=== PATIENT | female | born 1990 | race Hispanic/Latino ===

== ENCOUNTER 2016-06-09 10:00 | Outpatient (CLI) | payer MEDICAID ==
[2016-06-09 10:45] LABS: Hematocrit 39.3 % (30.3-42.9); Hemoglobin 13.1 gm/dl (10.1-14.3); Mean Corpuscular HGB Conc 33 % (30-34); Mean Corpuscular Hemoglobin 27 pg (28-32); Mean Corpuscular Volume 80 fl (79-97); Platelet Count 226 K/mm3 (140-440); Red Blood Count 4.92 M/mm3 (3.65-5.03); Red Cell Distribution Width 14.6 % (13.2-15.2); White Blood Count 7.5 K/mm3 (4.5-11.0)
[2016-06-09 11:13] LABS: Alanine Aminotransferase 16 units/L (7-56); Albumin/Globulin Ratio 1.4 %; Alkaline Phosphatase 114 units/L (35-129); Anion Gap 18 mmol/L; Bilirubin,Total 0.3 mg/dL (0.1-1.2); Blood Urea Nitrogen 9 mg/dL (7-17); Calcium 8.7 mg/dL (8.4-10.2); Carbon Dioxide 24 mmol/L (22-30); Chloride 104.4 mmol/L (98-107); Glucose 129 mg/dL (65-100); Sodium 142 mmol/L (137-145); Total Protein 6.9 g/dL (6.3-8.2)
--- NOTE | 2016-06-09 13:44 | Ultrasound Report ---
RIGHT UPPER QUADRANT ULTRASOUND: HISTORY: Right upper quadrant abdominal pain, cholelithiasis. Technique: Transabdominal ultrasound imaging with Doppler interrogation. FINDINGS: The liver is echogenic consistent with diffuse fatty infiltration. No focal liver mass. A large shadowing gallstone measuring up to 2.0 cm is identified within the gallbladder. There is no evidence for abnormal distention or surrounding fluid. The CBD measures 3 mm. Images of the liver parenchyma, pancreas, right kidney and aorta are within normal limits. No perihepatic ascites. IMPRESSION: Fatty infiltration of the liver. Large solitary gallstone. No findings suggest acute cholecystitis.
== END 2016-06-09 10:01 | disposition home or self-care (01) ==
LOC: US 10:00
PROVIDERS: ATTEND Surgery
DX: K80.20 Calculus of gallbladder without cholecystitis without obstruction (principal); K76.0 Fatty (change of) liver, not elsewhere classified
CPT/HCPCS: 36415; 76705; 80053; 81025; 85027

== ENCOUNTER 2016-06-16 11:22 | Day surgery (SDC) | payer MEDICAID ==
--- NOTE | 2016-06-15 15:36 | Admit Criteria Form ---
Admission Criteria Documentation: AMBULATORY SURGERY EXCEPTION CRITERIA Ambulatory Surgery Exception Criteria ( Place 'X' for any and all applicable criteria): Surgery or procedure performed on ambulatory basis may require inpatient stay for[A] ANY ONE of the following(1)(2)(3)(4)(5)(6)(7)(8)(9): [X] I. A preoperative situation, condition, or finding that warrants inpatient stay as indicated by ANY ONE of the following: [] a) Inpatient care needed because of severity of a disease or condition rather than the surgery (eg, severe cardiac or respiratory disease, severe infection) (15) (16 ) (17) (18) [] b) Emergent procedure (eg, angioplasty for acute ischemia)(19) [] c) Complex surgical approach or situation as indicated by ANY ONE of the following(3): [] i) Open approach needed instead of usual endoscopic, transcatheter, or other less invasive procedure [] ii) Difficult approach because of previous operation [] iii) Airway monitoring required after open neck procedures(20)(21) [] iv) Large mass requiring unusually extensive dissection [] v) Additional complicating feature requiring inpatient care (eg, drain management)(22(23): [X] d) Major surgery in a pt with high anesthetic risk as indicated by ANY ONE of the following (2)(3)(5)(7)(8): [] i) ASA risk class III or higher (severe systemic disease impairing function) [D] [] ii) Advanced age (eg, older than 85 years)(14)(24) [] iii) Symptomatic heart failure(25) [] iv) Symptomatic asthma or COPD(8)(21) [X] v) Morbid obesity with hemodynamic or respiratory problems(20)( 21)(26)(27) [] vi) Obstructive sleep apnea(20)(21) [] vii) Former premature infants who are younger than 60 weeks [] viii) High risk for severe postoperative abnormalities (eg, severe postoperative hypocalcemia after parathyroidectomy for severe hyperparathyroidism)(27)( 28) [] ix) Unstable angina(25) [] e) Drug-related risk requiring inpatient stay as indicated by ANY ONE of the following(5)(10)(14)(32)(33) [] i) Procedure requires discontinuing drugs or other therapy (eg , antiarrhythmic medication, antiseizure medication), which necessitates inpatient observation or treatment.(18)(31) [] ii) Major surgery and high risk drug use as indicated by ANY ONE of the following: [] 1) Active abuse of cocaine or similar drug [] 2) Monoamine oxidase inhibitor use [] 3) Other drug identified as posing risk [] f) Inadequate outpatient care situation as indicated by ANY ONE of the following(5)(10)(14)(32)(33) [] i) Patient lives remote from medical facility and procedure has urgent complication potential, and temporary nearby residence cannot be arranged [] ii) Patient will have postprocedure incapacitation and inadequate assistance at home, or alternative level of care cannot be arranged. [] iii) Patient will have long general anesthesia or procedure side effect resolution time, and competent person to stay with patient on first postoperative night at home or alternative level of care cannot be arranged. []iv) Other inadequate outpatient situation that cannot be handled by other means [] II. A perioperative event, condition, or finding that warrants inpatient stay as indicated by ANY ONE of the following (1)(2)(3): [] a) Inadequate physiologic recovery: cardiovascular, respiratory, or hemodynamic status not normal or near preoperative baseline(18) [] b) Hemodynamic instability [] c) Patient not alert with near normal or baseline mental status [] d) Temperature not normal or as expected and not appropriate for outpatient treatment of condition [] e) Ambulatory or appropriate activity level status not yet achieved post procedure [E](34)(35)(36) [] f) Operative site not appropriate (eg, unexpected or excessive drainage or bleeding) [] g) Postoperative effects not resolved or adequately managed (eg, significant pain or vomiting not appropriate for outpatient or next level of care)(10)(12) [] h) Complicating features requiring inpatient care as indicated by ANY ONE of the following(37): [] i) Severe complications of procedure (eg, bowel injury, airway compromise, vascular injury,severe hemorrhage) [] ii) Extensive (eg, dissection far beyond usual scope of procedure ) or prolonged (eg, 120 minutes beyond usual) surgery needed requiring inpatient postoperative care [] iii) Conversion to an open or complex procedure that requires inpatient care (eg, open vs laparoscopic cholecystectomy, abdominal vs vaginal hysterectomy)(38) [] iv) Comorbid condition or test result identified during or post procedure that requires inpatient care (7) [] v) Malignant hyperthermia(30) [] vi) Other complicating feature requiring inpatient care(22)(23) Inpatient stay may be needed until ALL of the following are present (1)(2)(3)(4) (5)(6)(10)(14)(33)(40): []a) Physiologic recovery: cardiovascular, respiratory, and hemodynamic status normal or near preoperative baseline []b) Hemodynamic stability []c) Patient alert, with near normal or baseline mental status []d) Temperature appropriate: patient afebrile or temperature appropriate for outpt treatment of condition []e) Activity level appropriate: ambulatory or appropriate activity level post procedure []f) Operative site appropriate as indicated by ALL of the following: []i) Site dry or with expected drainage []ii) Any blood noted is as expected for procedure. []g) Postoperative effects resolved or managed as indicated by ALL of the following: []i) Pain management appropriate for outpatient (or next level of) care(10) []ii) Minimal nausea and vomiting: if present, successfully treated with oral medication(12) []iii) Headache, dizziness, or drowsiness (if present) are mild. []h) Voiding status acceptable as indicated by ANY ONE of the following: []i) Voiding spontaneously []ii) No voiding but instructions given for follow-up in 6 to 8 hours []iii) Urinary catheter in place, and instructions given for follow-up []i) Complicating features requiring inpatient care manageable at a lower level of care(37) []j) Comorbid conditions manageable at a lower level of care(37) The original [employer] content created by [employer] has been revised. The portions of the content which have been revised are identified through the use of italic text or in bold, and [facility] [email or web address] has neither reviewed nor approved the modified material. All other unmodified content is copyright [employer]. Please see references footnoted in the original [employer] edition 2016 Admission Criteria Met: Yes
[2016-06-16] MEDS ORDERED: HEPARIN SUB-Q NR (12:15)
--- NOTE | 2016-06-16 12:44 | Anesthesia Day of Surgery ---
Anesthesia Day of Surgery - Day of Surgery Patient Examined: Yes Patient H&P Reviewed: Yes Patient is NPO: Yes
--- NOTE | 2016-06-16 12:44 | Anesthesia Consultation ---
Anesthesia Consult and Med Hx Date of service: 06/16/16 - Airway Anesthetic Teeth Evaluation: Good ROM Head & Neck: Adequate Mental/Hyoid Distance: Adequate Mallampati Class: Class II Intubation Access Assessment: Probably Good - Pulmonary Exam CTA: Yes - Cardiac Exam Cardiac Exam: RRR - Pre-Operative Health Status ASA Pre-Surgery Classification: ASA2 Proposed Anesthetic Plan: General - Pulmonary Hx Asthma: Yes (last used inhaler 2 days ago) COPD: No Hx Pneumonia: No - Cardiovascular System Hx Hypertension: No - Central Nervous System Hx Seizures: No Hx Psychiatric Problems: No - Endocrine Hx Renal Disease: No Hx End Stage Renal Disease: No Hx Hypothyroidism: No Hx Hyperthyroidism: No - Hematic Hx Anemia: No Hx Sickle Cell Disease: No - Other Systems Hx Alcohol Use: No Hx Cancer: No Hx Obesity: Yes (Morbid obesity)
[2016-06-16] MEDS ORDERED: VERSED IV NR (13:00)
[2016-06-16] MEDS ORDERED: NACL 0.9% 1000 ML 1,000 ML IV SCH (13:00)
[2016-06-16] MEDS ORDERED: VANCOMYCIN/NS 1 GM/250 ML 1 GM/250 ML BAG IV NR (13:00)
[2016-06-16] MEDS ORDERED: PEPCID IV NR (13:00)
[2016-06-16] MEDS ORDERED: XYLOCAINE MPF 2% ONE (13:13)
[2016-06-16] MEDS ORDERED: ZEMURON IV ONE (13:13)
[2016-06-16] MEDS ORDERED: DIPRIVAN 10 MG/ML IV ONE (13:13)
[2016-06-16] MEDS ORDERED: SUBLIMAZE ONE (13:13)
[2016-06-16] MEDS ORDERED: NORCO 5/325 PO PRN ×2 (13:18→15:46)
[2016-06-16] MEDS ORDERED: ZOFRAN IV PRN (13:18)
[2016-06-16] MEDS ORDERED: BREVIBLOC IV ONE (13:47)
[2016-06-16] MEDS ORDERED: BENADRYL ONE (13:48)
[2016-06-16] MEDS ORDERED: DILAUDID ONE (13:48)
[2016-06-16] MEDS ORDERED: DECADRON ONE (13:50)
[2016-06-16] MEDS ORDERED: ZOFRAN ONE (13:50)
[2016-06-16] MEDS ORDERED: MARCAINE 0.5% INFILTRATI ONE (14:00)
[2016-06-16] MEDS ORDERED: NACL 0.9% IR ONE (14:00)
[2016-06-16] MEDS ORDERED: ROBINUL ONE ×2 (14:09)
[2016-06-16] MEDS ORDERED: BLOXIVERZ ONE (14:09)
[2016-06-16] MEDS: DILAUDID IV PRN ×3 (14:49→15:09)
--- NOTE | 2016-06-16 14:54 | Operative Report ---
PREOPERATIVE DIAGNOSIS: Gallbladder disease with stones. POSTOPERATIVE DIAGNOSIS: Gallbladder disease with stones. SURGERY: Laparoscopic cholecystectomy. ANESTHESIA: General. BLOOD LOSS: Minimal. SENIOR RECEPTIONIST: Shola Apodaca MD FINDINGS: The patient had a very long and thin cystic duct that to me barely about 1 mm. The cystic artery is small as well. The gallbladder contained one stone that to me about 1 x 1 x 1 cm. Rest of the examination did not reveal anything specific. DESCRIPTION OF PROCEDURE: With the patient in supine position, prepped and draped in usual fashion. I made a small incision in the right upper abdomen under local anesthesia. With the Veress needle, I was able to introduce CO2 pressure of 15 for which #5 trocar was inserted. With the use of #5 camera, I was able to introduce 3 more trocars, 5 in the infraumbilical area, another 5 in the mid right upper abdomen and 10 in the mid upper epigastrium. All this was done under local anesthesia. We got hold of the gallbladder from its fundus and infundibular area at which point we were able to isolate and see both cystic duct and cystic artery. These were endoclipped x 4 each. Then, the gallbladder was removed in toto using electrocautery. This was excised through the epigastric trocar with the use of the EndoCatch. We were well satisfied, we had good hemostasis. There was excellent hemostasis. So, the wound was closed after removing all the trocars, deflating the abdominal cavity and the fascia was then closed with use of 0 Vicryl [id number] x 2 and the skin with 4-0 Vicryl and bandage. The patient was then transferred to the recovery room in good condition. JOB# [id number] MARCIE/DAVID
--- NOTE | 2016-06-16 15:51 | Post Anesthesia Evaluation ---
- Post Anesthesia Evaluation Patient Participated: Yes Airway Patent: Yes Stable Respiratory Function: Yes Temp > 96.8F: Yes Pain Manageable: Yes Adequeate Hydration: Yes Anesthesia Complications: No Block Receding Appropriately: Not Applicable
[2016-06-16 17:01] VITALS: BP 130/73
--- NOTE | 2016-06-16 23:22 | Discharge Summary ---
FINAL DIAGNOSIS: Gallbladder disease with stones. Very long cystic duct and it is barely about 1 mm. The patient had symptoms and signs of the gallbladder disease. She was seen in my office about 2 months ago then she came back last week for the above. She presents for a cholecystectomy. PHYSICAL EXAMINATION: GENERAL: Showed an obese white female. She is in no distress. HEAD AND NECK: Negative. CHEST: Clear. HEART: Sounds normal . ABDOMEN: Protuberant, soft, benign. Minimal tenderness in the right upper quadrant. HOSPITAL COURSE: The patient was thus admitted, where she underwent laparoscopic cholecystectomy. Postop, she was transferred to the recovery room. She is going to go home today, going to give a prescription for Vicodin to be taken 1 every 4 hours p.r.n. for pain, to see me in my office in about 10 days. JOB# [id number] MARCIE/DAVID
== END 2016-06-16 16:55 | disposition swing bed (61) ==
LOC: OR 11:22
PROVIDERS: ATTEND Surgery
DX: K80.10 Calculus of gallbladder with chronic cholecystitis without obstruction (principal); J45.909 Unspecified asthma, uncomplicated; E66.01 Morbid (severe) obesity due to excess calories; Z68.43 Body mass index [BMI] 50.0-59.9, adult
CPT/HCPCS: 47562; 81025; 88304; J1100; J1170; J1200; J1644; J2250; J2405; J2704; J2710; J3010; J3370; J7030

== ENCOUNTER 2016-07-18 21:53 | Emergency (ER) | payer MEDICAID ==
[2016-07-18 22:49] VITALS: BP 134/84
[2016-07-18 23:01] LABS: Basophils % (Auto) 0.4 % (0.0-1.8); Eosinophils % (Auto) 2.2 % (0.0-4.3); Hemoglobin 12.6 gm/dl (10.1-14.3); Mean Corpuscular HGB Conc 33 % (30-34); Mean Corpuscular Hemoglobin 27 pg (28-32); Mean Corpuscular Volume 81 fl (79-97); Platelet Count 199 K/mm3 (140-440); Red Cell Distribution Width 15.3 % (13.2-15.2); White Blood Count 7.5 K/mm3 (4.5-11.0)
[2016-07-18 23:23] LABS: Alanine Aminotransferase 18 units/L (7-56); Albumin 4.1 g/dL (3.9-5); Albumin/Globulin Ratio 1.4 %; Alkaline Phosphatase 140 units/L (35-129); Anion Gap 18 mmol/L; BUN/Creatinine Ratio 18.57; Bilirubin,Total 0.2 mg/dL (0.1-1.2); Blood Urea Nitrogen 13 mg/dL (7-17); Calcium 9.3 mg/dL (8.4-10.2); Carbon Dioxide 25 mmol/L (22-30); Chloride 103.7 mmol/L (98-107); Glucose 151 mg/dL (65-100); Lipase 31 units/L (13-60); Potassium 3.6 mmol/L (3.6-5.0); Sodium 143 mmol/L (137-145)
[2016-07-19 05:39] LABS: Bacteria,Urine 1+ /HPF (Negative); Bilirubin,Urine NEG (Negative); Blood,Urine NEG (Negative); Ketones,Urine NEG (Negative); Leukocyte Esterase,Urine SM (Negative); Mucus,Urine FEW /HPF; Nitrite,Urine NEG (Negative); Protein,Urine <15 mg/dL mg/dL (Negative); Urobilinogen,Urine < 2.0 mg/dL (<2.0)
--- NOTE | 2016-07-19 19:40 | ED Elopement Review ---
ED Pt Elopement review - Results review Lab results: Laboratory Tests 07/18/16 07/18/16 07/19/16 22:47 22:47 05:03 WBC 7.5 RBC 4.70 Hgb 12.6 Hct 38.0 MCV 81 MCH 27 L MCHC 33 RDW 15.3 H Plt Count 199 Lymph % (Auto) 29.7 Moca % (Auto) 6.6 Eos % (Auto) 2.2 Baso % (Auto) 0.4 Lymph # 2.2 Moca # 0.5 Eos # 0.2 Baso # 0.0 Seg Neutrophils % 61.1 Seg Neutrophils # 4.6 Sodium 143 Potassium 3.6 Chloride 103.7 Carbon Dioxide 25 Anion Gap 18 BUN 13 Creatinine 0.7 Estimated GFR > 60 BUN/Creatinine Ratio 18.57 Glucose 151 H Calcium 9.3 Total Bilirubin 0.2 AST 13 ALT 18 Alkaline Phosphatase 140 H Total Protein 7.0 Albumin 4.1 Albumin/Globulin Ratio 1.4 Lipase 31 Urine Color Yellow Urine Turbidity Slightly-cloudy Urine pH 6.0 Ur Specific [place] 1.021 Urine Protein <15 mg/dl Urine Glucose (UA) Neg Urine Ketones Neg Urine Blood Neg Urine Nitrite Neg Ur Reducing Substances Not Reportable Urine Bilirubin Neg Urine Ictotest Not Reportable Urine Urobilinogen < 2.0 Ur Leukocyte Esterase Sm Urine WBC (Auto) 8.0 H Urine RBC (Auto) 4.0 U Epithel Cells (Auto) 18.0 H Urine Bacteria (Auto) 1+ Urine Mucus Few Urine HCG, Qual Negative - Call Back decision Pt Call Back Decision: No action required
== END 2016-07-19 05:00 | disposition left against medical advice (07) ==
LOC: ED 21:53
DX: L08.9 Local infection of the skin and subcutaneous tissue, unspecified (principal); R10.9 Unspecified abdominal pain; R11.0 Nausea; R19.7 Diarrhea, unspecified; Z88.0 Allergy status to penicillin; Z53.21 Procedure and treatment not carried out due to patient leaving prior to being seen by health care provider
CPT/HCPCS: 36415; 80053; 81001; 81025; 83690; 85025

== ENCOUNTER 2017-01-24 14:53 | Emergency (ER) | payer MEDICAID, OTHER ==
[2017-01-24 15:34] VITALS: BP 113/71
[2017-01-24] MEDS ORDERED: NACL 0.9% 1000 ML 1,000 ML IV ONE (17:37)
[2017-01-24] MEDS ORDERED: REGLAN IV ONE (17:38)
[2017-01-24] MEDS ORDERED: BENADRYL IV ONE (17:38)
--- NOTE | 2017-01-24 17:44 | Emergency Department Report ---
ED Headache HPI - General Chief Complaint: Headache Stated Complaint: HEADACHE X3 WKS Time Seen by Provider: 01/24/17 17:32 Source: patient Exam Limitations: no limitations - History of Present Illness Initial Comments: PT states she has had a migraine for 3 days. PT states the headache is progressively worsening. PT states this feels like her normal migraine. PT states she is and has been taking Tylenol for her pain but its not helping, last dose 1430. PT states she called her OB/ [facility] but she has not had a call back. PT does report nausea. PT denies abd pain, vomiting, dysuria, and vaginal bleeding Timing/Duration: other (3 days ) Quality: constant, pressure, throbbing Head Injury Location: occipital Recent Head Trauma: no recent headache/trauma, occasional headaches (hx of migraine ) Associated Symptoms: nausea/vomiting. denies: fatigue, nasal congestion, nasal drainage, weakness Allergies/Adverse Reactions: Allergies Penicillins Allergy (Severe, Verified 01/21/15 17:01) Rash Home Medications: Ambulatory Orders oxyCODONE /ACETAMINOPHEN [Percocet 5/325 mg] 2 tab PO Q4H PRN #30 tablet ALBUTEROL Inhaler [Proair] 2 puff IH QID PRN 06/12/16 Melatonin 5 mg PO QHS 06/12/16 HYDROcodone/APAP 5-325 [[place] 5/325] 1 each PO Q6HR PRN #24 tablet 06/16/16 ED Review of Systems ROS: Stated complaint: HEADACHE X3 WKS Other details as noted in HPI Comment: All other systems reviewed and negative Constitutional: denies: fever, weakness Eyes: other (denies photophobia ). denies: eye pain Gastrointestinal: nausea. denies: abdominal pain, vomiting Genitourinary: other (denies bleeding ). denies: dysuria, discharge Musculoskeletal: denies: back pain Neurological: headache. denies: confusion, abnormal gait ED Past Medical Hx - Past Medical History Hx Hypertension: No Hx Congestive Heart Failure: No Hx Diabetes: No Hx Deep Vein Thrombosis: No Hx GERD: Yes Hx Renal Disease: No Hx Sickle Cell Disease: No Hx Headaches / Migraines: Yes (MIGRAINES) Hx Seizures: No Hx Asthma: Yes (last used inhaler 2 days ago) Hx COPD: No Hx HIV: No Additional medical history: Gallbladder removed via LAP 06/16/16 - Surgical History Hx Cholecystectomy: Yes Additional Surgical History: Stent to kidney during , subsequently removedD&C 2011 - Social History Smoking Status: Never Smoker Substance Use Type: None - Medications Home Medications: Home Medications Medication Instructions Recorded Confirmed Last Taken Type oxyCODONE /ACETAMINOPHEN [Percocet 2 tab PO Q4H PRN #30 tablet 03/27/15 2 Days Ago Rx 5/325 mg] ALBUTEROL Inhaler [Proair] 2 puff IH QID PRN 06/12/16 06/16/16 2 Days Ago History Melatonin 5 mg PO QHS 06/12/16 06/16/16 06/15/16 22:00 History 5MG HYDROcodone/APAP 5-325 [[address] 1 each PO Q6HR PRN #24 tablet 06/16/16 Unknown Rx 5/325] ED Physical Exam - General Limitations: No Limitations General appearance: alert, in no apparent distress, obese - Head Head exam: Present: atraumatic, normocephalic, normal inspection - Eye Eye exam: Present: normal appearance, PERRL, EOMI, nystagmus. Absent: conjunctival injection, periorbital swelling, periorbital tenderness Pupils: Present: normal accommodation - ENT ENT exam: Present: normal exam, normal orophraynx, mucous membranes moist, normal external ear exam - Neck Neck exam: Present: normal inspection, full ROM. Absent: tenderness - Respiratory Respiratory exam: Present: normal lung sounds bilaterally. Absent: respiratory distress, wheezes, rales - Cardiovascular Cardiovascular Exam: Present: regular rate, normal rhythm, normal heart sounds - GI/Abdominal GI/Abdominal exam: Present: soft. Absent: tenderness, guarding, rebound - Extremities Exam Extremities exam: Present: normal inspection, full ROM. Absent: pedal edema - Back Exam Back exam: Present: normal inspection, full ROM. Absent: tenderness, CVA tenderness (R), CVA tenderness (L), muscle spasm, paraspinal tenderness, vertebral tenderness - Neurological Exam Neurological exam: Present: alert, oriented X3, CN II-XII intact, normal gait - Expanded Neurological Exam Expanded Patient oriented to: Present: person, place, time Speech: Present: fluid speech Best Eye Response ([place]): (4) open spontaneously Best Motor Response ([place]): (6) obeys commands Best Verbal Response ([place]): (5) oriented [place] Total: 15 - Psychiatric Psychiatric exam: Present: normal affect, normal mood - Skin Skin exam: Present: warm, dry, intact ED Course Vital Signs 01/24/17 15:30 Temperature 98.2 F Pulse Rate 100 H Respiratory 18 Rate Blood Pressure 113/71 O2 Sat by Pulse 100 Oximetry - Reevaluation(s) Reevaluation #1: 01/24/17 17:54 PT aware of plan of care. No questions at this time. Reevaluation #2: 01/24/17 18:08 PT states she is feeling better. PT requesting dc home. - Pulse Oximetry Interpretation Digit-Finger Initial Pulse Oximetry Readin Actions Taken: none ED Medical Decision Making - Differential Diagnosis headache, migraine Critical Care Time: No Critical care attestation.: If time is entered above; I have spent that time in minutes in the direct care of this critically ill patient, excluding procedure time. ED Disposition Clinical Impression: Headache Qualifiers: Headache type: unspecified Headache chronicity pattern: acute headache Intractability: not intractable Qualified Code(s): R51 - Headache Disposition: DC-01 TO HOME OR SELFCARE Is pt being admited?: No Does the pt Need Aspirin: No Condition: Stable Instructions: Acute Headache (ED) Additional Instructions: Follow up with PCP or [facility] in 2-3 days Referrals: TORREY MEEKS MD [Staff Physician] - 3-5 Days PRIMARY CAREMD [Primary Care Provider] - 3-5 Days DANYEL LACEY MD [Staff Physician] - 3-5 Days Forms: Accompanied Note, Work/School Release Form(ED) Time of Disposition: 18:09
== END 2017-01-24 18:19 | disposition home or self-care (01) ==
LOC: ED 14:53
DX: O26.899 Other specified pregnancy related conditions, unspecified trimester (principal); R51 Headache; K21.9 Gastro-esophageal reflux disease without esophagitis; G43.909 Migraine, unspecified, not intractable, without status migrainosus; Z88.0 Allergy status to penicillin
CPT/HCPCS: 96361; 96374; 96375; 99282; J1200; J2765; J7030

== ENCOUNTER 2017-03-18 13:44 | Outpatient (CLI) | payer OTHER ==
[2017-03-18 14:51] VITALS: BP 101/50
[2017-03-18] MEDS ORDERED: LACTATED RINGERS 500 ML IV ONE (14:52)
[2017-03-18] MEDS ORDERED: NORCO 5/325 PO ONE (18:25)
--- NOTE | 2017-03-19 08:11 | Ultrasound Report ---
History: rule out abruption Gestation: Single Position: Transverse right Placenta: Anterior Placental Grade: 1 Heart Rate: 149 BPM No evidence of abruption.
== END 2017-03-18 20:04 | disposition home or self-care (01) ==
LOC: TRG 13:44
PROVIDERS: ATTEND Obstetrics & Gynecology
DX: O32.2XX0 Maternal care for transverse and oblique lie, not applicable or unspecified (principal); Z3A.21 21 weeks gestation of pregnancy
CPT/HCPCS: 59025; 76815

== ENCOUNTER 2017-07-14 10:25 | Outpatient (CLI) | payer MEDICAID ==
[2017-07-14 11:18] LABS: Bacteria,Urine 1+ /HPF (Negative); Bilirubin,Urine NEG (Negative); Blood,Urine NEG (Negative); Color,Urine Yellow (Yellow); Mucus,Urine 3+ /HPF; Protein,Urine <15 mg/dL mg/dL (Negative); Urobilinogen,Urine < 2.0 mg/dL (<2.0)
[2017-07-14] MEDS ORDERED: NORCO 5/325 PO PRN (11:33)
[2017-07-14 11:51] LABS: Hematocrit 36.8 % (30.3-42.9); Hemoglobin 12.8 gm/dl (10.1-14.3); Mean Corpuscular HGB Conc 35 % (30-34); Mean Corpuscular Hemoglobin 29 pg (28-32); Mean Corpuscular Volume 83 fl (79-97); Platelet Count 168 K/mm3 (140-440); Red Blood Count 4.43 M/mm3 (3.65-5.03); Red Cell Distribution Width 14.5 % (13.2-15.2)
[2017-07-14 11:52] VITALS: BP 122/69
[2017-07-14 12:07] LABS: Alanine Aminotransferase 16 units/L (7-56); Uric Acid 4.5 mg/dL (3.5-7.6)
== END 2017-07-14 13:13 | disposition home or self-care (01) ==
LOC: TRG 10:25
PROVIDERS: ATTEND Obstetrics & Gynecology
DX: O47.1 False labor at or after 37 completed weeks of gestation (principal); Z3A.38 38 weeks gestation of pregnancy
CPT/HCPCS: 36415; 59025; 81001; 82565; 83615; 84450; 84460; 84550; 85027

== ENCOUNTER 2018-08-23 23:23 | Emergency (ER) | payer MEDICAID ==
--- NOTE | 2018-08-24 00:35 | XRay Report ---
PROCEDURE: XR FOOT 3+V RT TECHNIQUE: 3 views of the right foot were submitted. HISTORY: pain and swelling COMPARISONS: 04/07/2018 FINDINGS: There is no evidence of fracture or dislocation. There is no evidence of arthritic changes. There is nonspecific mild swelling around the ankle and foot. IMPRESSION: Nonspecific mild swelling around the ankle and foot. No evidence of fracture or dislocation.. This document is electronically signed by Merlin Paul MD., August 24 2018 12:33:51 AM ET
--- NOTE | 2018-08-24 02:37 | Emergency Department Report ---
ED Extremity Problem HPI - General Chief complaint: Extremity Injury, Lower Stated complaint: RIGHT FOOT PAIN Time Seen by Provider: 08/24/18 01:54 Source: patient Mode of arrival: Ambulatory Limitations: No Limitations - History of Present Illness Initial comments: Pt is a 28 yo female who presents to the ED with c/o right foot pain that began 4 days ago. She has associated pain with movement and with wearing shoes. She states two years ago she fractured the foot and wore a cast at that time. She denies any new injury, fall, or trauma. She denies any numbness or weakness. Pt is able to move the toes. She has been ambulatory. only PMHx is asthma. medication allergy to penicillin. Severity scale (0 -10): 7 - Related Data Home Medications Medication Instructions Recorded Confirmed Last Taken Insulin NPH Human Isophane 24 1000units SUB-Q QHS 07/21/17 07/21/17 Unknown [Humulin N] valACYclovir [Valtrex] 1 tab PO QDAY 07/21/17 07/21/17 Unknown Previous Rx's Medication Instructions Recorded Last Taken Type Ferrous Sulfate [Feosol 325 MG tab] 325 mg PO BID #90 tablet 07/24/17 Unknown Rx Albuterol Sulfate [Ventolin HFA] 2 puff IH Q4H PRN #1 hfa.aer.ad 03/06/18 Unknown Rx Fluticasone [Flonase] 1 spray NS QDAY #1 bottle 03/06/18 Unknown Rx Metoclopramide [Reglan TAB] 10 mg PO TID PRN #30 tab 03/29/18 Unknown Rx diphenhydrAMINE [Benadryl CAP] 25 mg PO Q8HR PRN #30 capsule 03/29/18 Unknown Rx Ibuprofen 800 mg PO Q6HR PRN #14 tablet 08/24/18 Unknown Rx Allergies Allergy/AdvReac Type Severity Reaction Status Date / Time Penicillins Allergy Severe Rash Verified 01/21/15 17:01 ED Review of Systems ROS: Stated complaint: RIGHT FOOT PAIN Other details as noted in HPI Comment: All other systems reviewed and negative ED Past Medical Hx - Past Medical History Previous Medical History?: Yes Hx Hypertension: No Hx Congestive Heart Failure: No Hx Diabetes: No Hx Deep Vein Thrombosis: No Hx GERD: Yes Hx Renal Disease: No Hx Sickle Cell Disease: No Hx Headaches / Migraines: Yes (MIGRAINES) Hx Seizures: No Hx Asthma: Yes (last used inhaler 2 days ago) Hx COPD: No Hx HIV: No Additional medical history: Gallbladder removed via LAP 06/16/16. gestional diabetes with pregnacies. - Surgical History Past Surgical History?: Yes Hx Cholecystectomy: Yes (06/2016) Additional Surgical History: Stent to kidney during , subsequently removed. D&C 2011 - Social History Smoking Status: Never Smoker Substance Use Type: Alcohol - Medications Home Medications: Home Medications Medication Instructions Recorded Confirmed Last Taken Type Insulin NPH Human Isophane 24 1000units SUB-Q QHS 07/21/17 07/21/17 Unknown History [Humulin N] valACYclovir [Valtrex] 1 tab PO QDAY 07/21/17 07/21/17 Unknown History Ferrous Sulfate [Feosol 325 MG tab] 325 mg PO BID #90 tablet 07/24/17 Unknown Rx Albuterol Sulfate [Ventolin HFA] 2 puff IH Q4H PRN #1 hfa.aer.ad 03/06/18 Unknown Rx Fluticasone [Flonase] 1 spray NS QDAY #1 bottle 03/06/18 Unknown Rx Metoclopramide [Reglan TAB] 10 mg PO TID PRN #30 tab 03/29/18 Unknown Rx diphenhydrAMINE [Benadryl CAP] 25 mg PO Q8HR PRN #30 capsule 03/29/18 Unknown Rx Ibuprofen 800 mg PO Q6HR PRN #14 tablet 08/24/18 Unknown Rx ED Physical Exam - General Limitations: No Limitations General appearance: alert, in no apparent distress - Head Head exam: Present: atraumatic, normocephalic - Eye Eye exam: Present: normal appearance - ENT ENT exam: Present: mucous membranes moist - Extremities Exam Extremities exam: Present: other (TTP over the anterior portion of the right foot, FROM of the right foot, pt has pain with flexion, no obvious edema, no obvious joint laxity, able to move the digits, neurovascularly intact) - Neurological Exam Neurological exam: Present: alert, oriented X3 - Psychiatric Psychiatric exam: Present: normal affect, normal mood - Skin Skin exam: Present: warm, dry, intact ED Course Vital Signs 08/24/18 00:07 Temperature 98.6 F Pulse Rate 105 H Respiratory 18 Rate Blood Pressure 134/84 [Right] O2 Sat by Pulse 98 Oximetry ED Medical Decision Making - Radiology Data Radiology results: report reviewed PROCEDURE: XR FOOT 3+V RT TECHNIQUE: 3 views of the right foot were submitted. HISTORY: pain and swelling COMPARISONS: 04/07/2018 FINDINGS: There is no evidence of fracture or dislocation. There is no evidence of arthritic changes. There is nonspecific mild swelling around the ankle and foot. IMPRESSION: Nonspecific mild swelling around the ankle and foot. No evidence of fracture or dislocation.. This document is electronically signed by Merlin Paul MD., August 24 2018 12:33:51 AM ET - Medical Decision Making Pt is a 28 yo female who presents to the ED with c/o right foot pain that began 4 days ago. She has associated pain with movement and with wearing shoes. She states two years ago she fractured the foot and wore a cast at that time. She denies any new injury, fall, or trauma. She denies any numbness or weakness. Pt is able to move the toes. She has been ambulatory. only PMHx is asthma. me dication allergy to penicillin. XR of the foot with no acute fracture or dislocation. Will give pt ortho shoe. Will have pt follow up with ha Sewell in the next 2-3 days. Will give pt anti-inflammatory. Advised to elevate, use ice, and rest. Return to the emergency room for any new or worsening symptoms. - Differential Diagnosis fx, sprain, strain, dislocation Critical care attestation.: If time is entered above; I have spent that time in minutes in the direct care of this critically ill patient, excluding procedure time. ED Disposition Clinical Impression: Right foot pain Disposition: TO HOME OR SELFCARE Is pt being admited?: No Does the pt Need Aspirin: No Condition: Stable Instructions: Arthralgia (ED) Additional Instructions: Please wear ortho shoe. Please follow up with ha Sewell in the next 2-3 days. Take medication as prescribed as needed. May elevate, use ice, and rest. Return to the emergency room for any new or worsening symptoms. Prescriptions: Ibuprofen 800 mg PO Q6HR PRN #14 tablet PRN Reason: Pain, Moderate (4-6) Referrals: [facility] MD CANDELARIA [Primary Care Provider] - 2-3 Days MERLIN RIVAS MD [Staff Physician] - 2-3 Days Time of Disposition: 02:38 Print Language: BAHRAINI
[2018-08-24 05:09] VITALS: BP 123/79
== END 2018-08-24 03:10 | disposition home or self-care (01) ==
LOC: ED 23:23
DX: M79.671 Pain in right foot (principal); G43.909 Migraine, unspecified, not intractable, without status migrainosus; K21.9 Gastro-esophageal reflux disease without esophagitis; J45.909 Unspecified asthma, uncomplicated; Z90.49 Acquired absence of other specified parts of digestive tract; Z88.0 Allergy status to penicillin
CPT/HCPCS: 99284

== ENCOUNTER 2018-11-14 00:17 | Emergency (ER) | payer MEDICAID, OTHER ==
[2018-11-14 01:24] LABS: Basophils % (Auto) 0.3 % (0.0-1.8); Eosinophils # (Auto) 0.1 K/mm3 (0.0-0.4); Eosinophils % (Auto) 1.2 % (0.0-4.3); Hematocrit 38.5 % (30.3-42.9); Lymphocytes # (Auto) 2.8 K/mm3 (1.2-5.4); Lymphocytes % (Auto) 31.2 % (13.4-35.0); Mean Corpuscular HGB Conc 34 % (30-34); Mean Corpuscular Volume 80 fl (79-97); Monocytes # (Auto) 0.5 K/mm3 (0.0-0.8); Monocytes % (Auto) 5.7 % (0.0-7.3); Platelet Count 254 K/mm3 (140-440); Red Cell Distribution Width 14.7 % (13.2-15.2)
[2018-11-14 01:45] LABS: Alanine Aminotransferase 10 units/L (7-56); BUN/Creatinine Ratio 15; Blood Urea Nitrogen 9 mg/dL (7-17); Calcium 8.6 mg/dL (8.4-10.2); Hemolysis Index 3
[2018-11-14] MEDS ORDERED: MORPHINE IV ONE (03:15)
[2018-11-14] MEDS ORDERED: REGLAN IV ONE (03:15)
[2018-11-14 03:59] LABS: Bacteria,Urine 3+ /HPF (Negative); Bilirubin,Urine NEG (Negative); Blood,Urine NEG (Negative); Color,Urine Yellow (Yellow); Mucus,Urine 2+ /HPF; Protein,Urine <15 mg/dL mg/dL (Negative); Urobilinogen,Urine < 2.0 mg/dL (<2.0)
--- NOTE | 2018-11-14 04:26 | Ultrasound Report ---
US OB transvaginal, US OB <= 14 weeks fetus INDICATION / CLINICAL INFORMATION: abdominal pain. COMPARISON: None available. FINDINGS: Uterus measures measures 11.5 cm There is an irregular intrauterine gestational sac without demonstrated pole or yolk sac. The gestational sac measures 1.9 cm corresponding to a 6 week 6 day gestation The left ovary is not i dentified. The right ovary measures 3.6 x 2.0 cm. There is a 1.7 cm right ovarian cyst. No free fluid collections are seen in the pelvis. IMPRESSION: 1. 6 week 6 day size gestational sac without demonstrated pole or yolk sac. Signer Name: Casey Pereira MD Signed: 11/14/2018 4:21 AM Workstation Name: [id number]
[2018-11-14] MEDS ORDERED: ROCEPHIN/NS 1 GM/50 ML 1 GM/50 ML BAG IV ONE (04:42)
[2018-11-14] MEDS ORDERED: BENADRYL IV ONE (04:43)
--- NOTE | 2018-11-14 04:58 | Emergency Department Report ---
ED Female HPI - General Chief complaint: Abdominal Pain Stated complaint: 5WEEKS PREG, LOWER ABDOMINAL AND BACK PAIN Time Seen by Provider: 11/14/18 03:00 Source: patient Mode of arrival: Ambulatory Limitations: No Limitations - History of Present Illness Initial comments: Patient is a A2 and it showed female who is approximately 5 weeks gestation and presents to the [facility] of acute onset of diffuse lower abdominal pain that radiates to her lower back for the last 24 hours. Patient denies vaginal bleeding, vaginal discharge, dysuria, urinary frequency and urgency, vaginal discharge, fever, chills, nausea, vomiting, diarrhea, dizziness, cough, chest pain or shortness of breath. MD Complaint: pelvic pain, other (LOWER BACK) -: Sudden, hour(s) (24) Location: suprapubic Radiation: other (LOWER BACK) Severity: severe Severity scale (0 -10): 7 Quality: cramping, sharp, aching Consistency: constant Improves with: none Worsens with: none Are you Now?: No (YES 5 WEEKS) Last Menstrual Period: 10/01/18 EDC: 07/08/19 Associated Symptoms: denies other symptoms, abdominal pain. denies: vaginal discharge, vaginal bleeding, nausea/vomiting, fever/chills, headaches, loss of a ppetite, dysuria, hematuria, rash, seizure, shortness of breath, syncope, weakness - Related Data Sexually active: Yes : 7 Para: 4 A: 2 Home Medications Medication Instructions Recorded Confirmed Last Taken Insulin NPH Human Isophane 24 1000units SUB-Q QHS 07/21/17 07/21/17 Unknown [Humulin N] valACYclovir [Valtrex] 1 tab PO QDAY 07/21/17 07/21/17 Unknown Previous Rx's Medication Instructions Recorded Last Taken Type Ferrous Sulfate [Feosol 325 MG tab] 325 mg PO BID #90 tablet 07/24/17 Unknown Rx Albuterol Sulfate [Ventolin HFA] 2 puff IH Q4H PRN #1 hfa.aer.ad 03/06/18 Unknown Rx Fluticasone [Flonase] 1 spray NS QDAY #1 bottle 03/06/18 Unknown Rx Metoclopramide [Reglan TAB] 10 mg PO TID PRN #30 tab 03/29/18 Unknown Rx diphenhydrAMINE [Benadryl CAP] 25 mg PO Q8HR PRN #30 capsule 03/29/18 Unknown Rx Ibuprofen [Ibuprofen 800] 800 mg PO Q6HR PRN #14 tablet 08/24/18 Unknown Rx cephALEXin [Keflex] 500 mg PO Q6HR #40 capsule 11/14/18 Unknown Rx diphenhydrAMINE [Benadryl] 25 mg IV Q6HR PRN #24 vial 11/14/18 Unknown Rx Allergies Allergy/AdvReac Type Severity Reaction Status Date / Time Penicillins Allergy Severe Rash Verified 01/21/15 17:01 ED Review of Systems ROS: Stated complaint: 5WEEKS PREG, LOWER ABDOMINAL AND BACK PAIN Other details as noted in HPI Constitutional: denies: chills, fever Eyes: denies: eye pain, eye discharge, vision change ENT: denies: ear pain, throat pain Respiratory: denies: cough, shortness of breath, wheezing Cardiovascular: denies: chest pain, palpitations Endocrine: no symptoms reported Gastrointestinal: abdominal pain (suprapubic). denies: nausea, diarrhea Genitourinary: denies: urgency, dysuria, frequency, hematuria, discharge, abnormal menses, dyspareunia Musculoskeletal: denies: back pain, joint swelling, arthralgia Skin: denies: rash, lesions Neurological: denies: headache, weakness, paresthesias Psychiatric: denies: anxiety, depression Hematological/Lymphatic: denies: easy bleeding, easy bruising ED Past Medical Hx - Past Medical History Previous Medical History?: Yes Hx Hypertension: No Hx Congestive Heart Failure: No Hx Diabetes: No Hx Deep Vein Thrombosis: No Hx GERD: Yes Hx Renal Disease: No Hx Sickle Cell Disease: No Hx Headaches / Migraines: Yes (MIGRAINES) Hx Seizures: No Hx Asthma: Yes (last used inhaler 2 days ago) Hx COPD: No Hx HIV: No Additional medical history: Gallbladder removed via LAP 06/16/16. gestional diabetes with pregnacies. - Surgical History Past Surgical History?: Yes Hx Cholecystectomy: Yes (06/2016) Additional Surgical History: Stent to kidney during , subsequently removed. D&C 2011 - Social History Smoking Status: Never Smoker Substance Use Type: Alcohol - Medications Home Medications: Home Medications Medication Instructions Recorded Confirmed Last Taken Type Insulin NPH Human Isophane 24 1000units SUB-Q QHS 07/21/17 07/21/17 Unknown History [Humulin N] valACYclovir [Valtrex] 1 tab PO QDAY 07/21/17 07/21/17 Unknown History Ferrous Sulfate [Feosol 325 MG tab] 325 mg PO BID #90 tablet 07/24/17 Unknown Rx Albuterol Sulfate [Ventolin HFA] 2 puff IH Q4H PRN #1 hfa.aer.ad 03/06/18 Un known Rx Fluticasone [Flonase] 1 spray NS QDAY #1 bottle 03/06/18 Unknown Rx Metoclopramide [Reglan TAB] 10 mg PO TID PRN #30 tab 03/29/18 Unknown Rx diphenhydrAMINE [Benadryl CAP] 25 mg PO Q8HR PRN #30 capsule 03/29/18 Unknown Rx Ibuprofen [Ibuprofen 800] 800 mg PO Q6HR PRN #14 tablet 08/24/18 Unknown Rx cephALEXin [Keflex] 500 mg PO Q6HR #40 capsule 11/14/18 Unknown Rx diphenhydrAMINE [Benadryl] 25 mg IV Q6HR PRN #24 vial 11/14/18 Unknown Rx ED Physical Exam - General Limitations: No Limitations General appearance: alert, in no apparent distress - Head Head exam: Present: atraumatic, normocephalic, normal inspection - Eye Eye exam: Present: normal appearance, PERRL, EOMI. Absent: scleral icterus Pupils: Present: normal accommodation - ENT ENT exam: Present: normal exam, normal orophraynx, mucous membranes moist. Absent: TM's normal bilaterally, normal external ear exam - Neck Neck exam: Present: normal inspection, full ROM. Absent: tenderness, lymphadenopathy, thyromegaly - Respiratory Respiratory exam: Present: normal lung sounds bilaterally. Absent: respiratory distress, wheezes, accessory muscle use, decreased breath sounds - Cardiovascular Cardiovascular Exam: Present: normal rhythm, tachycardia, normal heart sounds. Absent: systolic murmur, diastolic murmur, rubs, gallop - GI/Abdominal GI/Abdominal exam: Present: soft, tenderness (suprapubic), normal bowel sounds. Absent: guarding, rebound, hyperactive bowel sounds, organomegaly - Rectal Rectal exam: Present: deferred - Bi-manual exam: Present: other (Deferred, patient prefers her own [facility]) - Extremities Exam Extremities exam: Present: normal inspection, full ROM, normal capillary refill - Back Exam Back exam: Present: normal inspection, full ROM. Absent: tenderness, CVA tenderness (L), muscle spasm, paraspinal tenderness, vertebral tenderness - Neurological Exam Neurological exam: Present: alert, oriented X3, CN II-XII intact, normal gait, reflexes normal - Psychiatric Psychiatric exam: Present: normal affect, normal mood - Skin Skin exam: Present: warm, dry, intact, normal color. Absent: rash ED Course Vital Signs 11/14/18 11/14/18 00:22 04:12 Temperature 98.4 F Pulse Rate 105 H Respiratory 18 18 Rate Blood Pressure 143/93 O2 Sat by Pulse 98 Oximetry - Reevaluation(s) Reevaluation #1: 11/14/18 04:59 Patient is alert and oriented 3 and is not in distress. Lab test results were reviewed and were unremarkable except for hCG Quant of 223.9 and urinalysis that shows significant acute tract infection. Patient was treated in the ED for pain and also received Rocephin 1 g IV 1 with Benadryl 25 mg IV 1. Transvaginal ultrasound shows uterus measuring 11.5 cm with an irregular intrauterine gestational sac without demonstrated yolk sac or pole. The gestational sac measures 1.9 cm) to a 6 week 6 day gestation. The left ovary was not identified. The right ovary measures 3.6 x 2.0 cm, and there is a 1.7 cm right ovarian cyst. The hCG Quant results is inconsistent with the transvaginal ultrasound measuring 6 weeks and 6 days gestation, possibly due to demise, inevitable or incomplete . Patient was advised to follow-up with [facility] [employer] physician within 48 hours for repeat hCG Quant or return to the ED for the same in 48 hours. Patient was also advised to maintain complete pelvic rest and take pain medication and antibiotics for acute traumatic tract infection. Patient was also less return to the ED immediately if symptoms get worse. ED Medical Decision Making - Lab Data Result diagrams: 11/14/18 00:51 11/14/18 00:51 - Radiology Data Radiology results: report reviewed, image reviewed Transvaginal ultrasound shows uterus measuring 11.5 cm with an irregular intrauterine gestational sac without demonstrated yolk sac or pole. The gestational sac measures 1.9 cm) to a 6 week 6 day gestation. The left ovary was not identified. The right ovary measures 3.6 x 2.0 cm, and there is a 1.7 cm right ovarian cyst. e. - Medical Decision Making Patient is alert and oriented 3 and is not in distress. Lab test results were reviewed and were unremarkable except for hCG Quant of 223.9 and urinalysis that shows significant acute tract infection. Patient was treated in the ED for pain and also received Rocephin 1 g IV 1 with Benadryl 25 mg IV 1. Transvaginal ultrasound shows uterus measuring 11.5 cm with an irregular intrauterine gestational sac without demonstrated yolk sac or pole. The gestational sac measures 1.9 cm) to a 6 week 6 day gestation. The left ovary was not identified. The right ovary measures 3.6 x 2.0 cm, and there is a 1.7 cm right ovarian cyst. The hCG Quant results is inconsistent with the transvaginal ultrasound measuring 6 weeks and 6 days gestation, possibly due to demise, inevitable or incomplete , or too early. Patient was advised to follow- up with [facility] [employer] physician within 48 hours for repeat hCG Quant or return to the ED for the same in 48 hours. Patient was also advised to maintain complete pelvic rest and take pain medication and antibiotics for acute traumatic tract infection. Patient was also less return to the ED immediately if symptoms get worse. - Differential Diagnosis Abdominal pain in , Acute UTI, Inevitable Critical care attestation.: If time is entered above; I have spent that time in minutes in the direct care of this critically ill patient, excluding procedure time. ED Disposition Clinical Impression: Inevitable spontaneous , Acute urinary tract infection, Threatened miscarriage in early Abdominal pain during Qualifiers: Trimester: first trimester Qualified Code(s): O26.891 - Other specified related conditions, first trimester; R10.9 - Unspecified abdominal pain Disposition: DC-01 TO HOME OR SELFCARE Is pt being admited?: No Does the pt Need Aspirin: No Condition: Stable Instructions: Abdominal Pain (ED), Threatened Miscarriage (ED), Urinary Tract Infection in Women (ED) Additional Instructions: Maintain a complete pelvic rest, take medications and follow up with your [facility] [employer] [employer] physician or return to the ED in 48 hours for repeat of the hCG quantitative test. Otherwise return to the ED immediately if symptoms get worse. Prescriptions: diphenhydrAMINE [Benadryl] 25 mg IV Q6HR PRN #24 vial PRN Reason: Itching cephALEXin [Keflex] 500 mg PO Q6HR #40 capsule Time of Disposition: 05:08 Print Language: WOLOF
[2018-11-14 05:20] VITALS: BP 138/81
== END 2018-11-14 05:17 | disposition home or self-care (01) ==
LOC: ED 00:17
DX: O20.0 Threatened abortion (principal); O23.41 Unspecified infection of urinary tract in pregnancy, first trimester; O99.351 Diseases of the nervous system complicating pregnancy, first trimester; G43.909 Migraine, unspecified, not intractable, without status migrainosus; O99.611 Diseases of the digestive system complicating pregnancy, first trimester; K21.9 Gastro-esophageal reflux disease without esophagitis; O99.511 Diseases of the respiratory system complicating pregnancy, first trimester; J45.909 Unspecified asthma, uncomplicated; Z79.1 Long term (current) use of non-steroidal anti-inflammatories (NSAID); Z79.899 Other long term (current) drug therapy; Z88.0 Allergy status to penicillin; Z90.49 Acquired absence of other specified parts of digestive tract; Z3A.01 Less than 8 weeks gestation of pregnancy
CPT/HCPCS: 36415; 76801; 76817; 80053; 81001; 83690; 84702; 84703; 85025; 87076; 87086; 87186; 96374; 96375; 99284; J0696; J1200; J2270; J2765; 96365

== ENCOUNTER 2018-11-19 21:53 | Emergency (ER) | payer MEDICAID ==
--- NOTE | 2018-11-19 22:02 | Event Note ---
ED Screening Note Date of service: 11/19/18 Time: 21:59 ED Screening Note: 28 y/o female comes in reporting that she is 19 weeks and 6 days preg with vaginal spotting, having abdominal pain. [facility] is her provider. LMP 06/26/18. This initial assessment/diagnostic orders/clinical plan/treatment(s) is/are subject to change based on patients health status, clinical progression and re- assessment by fellow clinical providers in the ED. Further treatment and workup at subsequent clinical providers discretion. Patient/guardian urged not to elope from the ED as their condition may be serious if not clinically assessed and managed. Initial orders include:
--- NOTE | 2018-11-19 22:09 | Event Note ---
ED Screening Note Date of service: 11/19/18 Time: 22:08 ED Screening Note: 28 y/o female comes in reporting needing a repeat HCG. Was last seen on 11/14/18. Low HCG . LMP 10/07/18. This initial assessment/diagnostic orders/clinical plan/treatment(s) is/are subject to change based on patients health status, clinical progression and re- assessment by fellow clinical providers in the ED. Further treatment and workup at subsequent clinical providers discretion. Patient/guardian urged not to elope from the ED as their condition may be serious if not clinically assessed and managed. Initial orders include:
[2018-11-19 22:10] VITALS: BP 141/93
--- NOTE | 2018-11-20 00:37 | Emergency Department Report ---
ED General Adult HPI - General Chief complaint: Urogenital-Female Stated complaint: HCG RECHECK Time Seen by Provider: 11/20/18 00:31 Source: patient Mode of arrival: Ambulatory Limitations: No Limitations - History of Present Illness Initial comments: 28-year-old female presents much department. Reevaluation of hCG. She was seen on 714 for possible miscarriage. An HCG of 223. She Reports No Continued Bleeding That Is Not yet Followed up with Her FLOOR TRADER at [facility]. She Presents Today for HCG. Reevaluation Reported. No New Symptomology. Denies Any Chest Pain, Palpitations, Fever, Chills, Sweats, Dysuria -: Gradual Radiation: non-radiation Severity scale (0 -10): 0 Improves with: none Worsens with: none Associated Symptoms: denies other symptoms Treatments Prior to Arrival: none - Related Data Home Medications Medication Instructions Recorded Confirmed Last Taken Insulin NPH Human Isophane 24 1000units SUB-Q QHS 07/21/17 07/21/17 Unknown [Humulin N] valACYclovir [Valtrex] 1 tab PO QDAY 07/21/17 07/21/17 Unknown Previous Rx's Medication Instructions Recorded Last Taken Type Ferrous Sulfate [Feosol 325 MG tab] 325 mg PO BID #90 tablet 07/24/17 Unknown Rx Albuterol Sulfate [Ventolin HFA] 2 puff IH Q4H PRN #1 hfa.aer.ad 03/06/18 Unknown Rx Fluticasone [Flonase] 1 spray NS QDAY #1 bottle 03/06/18 Unknown Rx Metoclopramide [Reglan TAB] 10 mg PO TID PRN #30 tab 03/29/18 Unknown Rx diphenhydrAMINE [Benadryl CAP] 25 mg PO Q8HR PRN #30 capsule 03/29/18 Unknown Rx Ibuprofen [Ibuprofen 800] 800 mg PO Q6HR PRN #14 tablet 08/24/18 Unknown Rx cephALEXin [Keflex] 500 mg PO Q6HR #40 capsule 11/14/18 Unknown Rx diphenhydrAMINE [Benadryl] 25 mg IV Q6HR PRN #24 vial 11/14/18 Unknown Rx Allergies Allergy/AdvReac Type Severity Reaction Status Date / Time Penicillins Allergy Severe Rash Verified 01/21/15 17:01 ED Review of Systems ROS: Stated complaint: HCG RECHECK Other details as noted in HPI Comment: All other systems reviewed and negative ED Past Medical Hx - Past Medical History Previous Medical History?: Yes Hx Hypertension: No Hx Congestive Heart Failure: No Hx Diabetes: No Hx Deep Vein Thrombosis: No Hx GERD: Yes Hx Renal Disease: No Hx Sickle Cell Disease: No Hx Headaches / Migraines: Yes (MIGRAINES) Hx Seizures: No Hx Asthma: Yes (last used inhaler 2 days ago) Hx COPD: No Hx HIV: No Additional medical history: Gallbladder removed via LAP 06/16/16. gestional diabetes with pregnacies. - Surgical History Hx Cholecystectomy: Yes (06/2016) Additional Surgical History: Stent to kidney during , subsequently removed. D&C 2011 - Social History Smoking Status: Never Smoker Substance Use Type: None - Medications Home Medications: Home Medications Medication Instructions Recorded Confirmed Last Taken Type Insulin NPH Human Isophane 24 1000units SUB-Q QHS 07/21/17 07/21/17 Unknown History [Humulin N] valACYclovir [Valtrex] 1 tab PO QDAY 07/21/17 07/21/17 Unknown History Ferrous Sulfate [Feosol 325 MG tab] 325 mg PO BID #90 tablet 07/24/17 Unknown Rx Albuterol Sulfate [Ventolin HFA] 2 puff IH Q4H PRN #1 hfa.aer.ad 03/06/18 Unknown Rx Fluticasone [Flonase] 1 spray NS QDAY #1 bottle 03/06/18 Unknown Rx Metoclopramide [Reglan TAB] 10 mg PO TID PRN #30 tab 03/29/18 Unknown Rx diphenhydrAMINE [Benadryl CAP] 25 mg PO Q8HR PRN #30 capsule 03/29/18 Unknown Rx Ibuprofen [Ibuprofen 800] 800 mg PO Q6HR PRN #14 tablet 08/24/18 Unknown Rx cephALEXin [Keflex] 500 mg PO Q6HR #40 capsule 11/14/18 Unknown Rx diphenhydrAMINE [Benadryl] 25 mg IV Q6HR PRN #24 vial 11/14/18 Unknown Rx ED Physical Exam - General Limitations: No Limitations General appearance: alert, in no apparent distress - Head Head exam: Present: atraumatic, normocephalic - Eye Eye exam: Present: normal appearance, PERRL, EOMI Pupils: Present: normal accommodation - ENT ENT exam: Present: normal exam, mucous membranes moist - Neck Neck exam: Present: normal inspection, full ROM - Respiratory Respiratory exam: Present: normal lung sounds bilaterally. Absent: respiratory distress - Cardiovascular Cardiovascular Exam: Present: regular rate, normal rhythm. Absent: systolic murmur, diastolic murmur, rubs, gallop - GI/Abdominal GI/Abdominal exam: Present: soft, normal bowel sounds - Extremities Exam Extremities exam: Present: normal inspection, full ROM, normal capillary refill - Back Exam Back exam: Present: normal inspection. Absent: CVA tenderness (R), CVA tenderness (L) - Neurological Exam Neurological exam: Present: alert, oriented X3, CN II-XII intact, normal gait - Psychiatric Psychiatric exam: Present: normal affect, normal mood - Skin Skin exam: Present: warm, dry, intact, normal color. Absent: rash ED Course Vital Signs 11/19/18 11/19/18 11/19/18 21:56 21:58 22:08 Temperature 98.4 F 98.4 F 98.4 F Pulse Rate 106 H 104 H 106 H Respiratory 18 18 18 Rate Blood Pressure 141/93 141/93 Blood Pressure 141/93 [Left] O2 Sat by Pulse 99 99 99 Oximetry Critical care attestation.: If time is entered above; I have spent that time in minutes in the direct care of this critically ill patient, excluding procedure time. ED Disposition Clinical Impression: Elevated serum hCG, Disposition: DC-01 TO HOME OR SELFCARE Is pt being admited?: No Does the pt Need Aspirin: No Condition: Stable Additional Instructions: Please follow-up with woman's primary health center for evaluation and treatment recommendations of her . Her hCG has discussed have been provided with a copy of hCG levels. Referrals: LARISA TONY MD [Primary Care Provider] - 3-5 Days [facility] [Provider Group] - 3-5 Days
== END 2018-11-20 01:00 | disposition home or self-care (01) ==
LOC: ED 21:53
DX: O26.891 Other specified pregnancy related conditions, first trimester (principal); G43.909 Migraine, unspecified, not intractable, without status migrainosus; O99.611 Diseases of the digestive system complicating pregnancy, first trimester; K21.9 Gastro-esophageal reflux disease without esophagitis; O99.511 Diseases of the respiratory system complicating pregnancy, first trimester; J45.909 Unspecified asthma, uncomplicated; Z3A.01 Less than 8 weeks gestation of pregnancy; Z90.49 Acquired absence of other specified parts of digestive tract; Z79.899 Other long term (current) drug therapy; Z88.0 Allergy status to penicillin
CPT/HCPCS: 36415; 84702; 99283

== ENCOUNTER 2018-12-11 20:39 | Emergency (ER) | payer MEDICAID ==
--- NOTE | 2018-12-11 20:45 | Emergency Department Report ---
Blank Doc - Documentation Documentation: This is a 28-year-old female that presents with vaginal bleeding and pelvic cr amping. Stated is about 7 weeks . This initial assessment/diagnostic orders/clinical plan/treatment(s) is/are subject to change based on patient's health status, clinical progression and re- assessment by fellow clinical providers in the ED. Further treatment and workup at subsequent clinical providers discretion. Patient/guardians urged not to elope from the ED as their condition may be serious if not clinically assessed and managed. Initial orders include: 1- Patient sent to [facility] for further evaluation and treatment 2- UA 3- labs
[2018-12-11 21:04] LABS: Basophils % (Auto) 0.7 % (0.0-1.8); Eosinophils # (Auto) 0.1 K/mm3 (0.0-0.4); Hematocrit 37.4 % (30.3-42.9); Hemoglobin 13.1 gm/dl (10.1-14.3); Lymphocytes # (Auto) 1.6 K/mm3 (1.2-5.4); Lymphocytes % (Auto) 26.2 % (13.4-35.0); Mean Corpuscular HGB Conc 35 % (30-34); Mean Corpuscular Volume 80 fl (79-97); Monocytes # (Auto) 0.3 K/mm3 (0.0-0.8); Platelet Count 233 K/mm3 (140-440); Red Blood Count 4.65 M/mm3 (3.65-5.03); Red Cell Distribution Width 14.5 % (13.2-15.2)
[2018-12-11 21:54] LABS: Bilirubin,Urine NEG (Negative); Blood,Urine NEG (Negative); Calcium Oxalate Crystals,Urine 2+; Color,Urine Yellow (Yellow); Mucus,Urine FEW /HPF; Protein,Urine <15 mg/dL mg/dL (Negative); Urobilinogen,Urine < 2.0 mg/dL (<2.0)
--- NOTE | 2018-12-12 01:53 | Emergency Department Report ---
<LINDSEY HURLEY - Last Filed: 12/12/18 01:48> ED HPI - General Chief complaint: Vaginal Bleeding Stated complaint: BLEEDING/7WKS /CRAMPS Time Seen by Provider: 12/11/18 20:44 Source: patient Mode of arrival: Ambulatory Limitations: No Limitations - History of Present Illness Initial comments: This is a 28-year-old occasion female that presents to the emergency room with vaginal bleeding and abdominal pain. Patient states she is 8 weeks and followed by [place] [facility]. Her last menstrual period was 10/07/2018, 82 miscarriages. Patient states cramping improved since yesterday when symptoms started but she continued to have vaginal bleeding. She is currently wearing a panic minor. She denies vaginal discharge, nausea, vomiting, dysuria, urinary frequency, urgency, or back pain. MD Complaint: abdominal pain, vaginal bleeding Onset/Timin -: days(s) Location: abdomen Radiation: none Severity: moderate Severity scale (0 -10): 2 Quality: cramping Consistency: intermittent Improves with: none Worsens with: none Associated symptoms: denies other symptoms Vaginal bleeding: light :: Yes Number of weeks : 8 OB History - Current : no complications OB History - Previous Pregnancies: miscarriage Last menstrual period: 10/07/18 Pre-[facility] care: followed by OB - Related Data : 7 Para: 4 Ab: 2 (miscarriage) Home Medications Medication Instructions Recorded Confirmed Last Taken Insulin NPH Human Isophane 24 1000units SUB-Q QHS 07/21/17 07/21/17 Unknown [Humulin N] valACYclovir [Valtrex] 1 tab PO QDAY 07/21/17 07/21/17 Unknown Previous Rx's Medication Instructions Recorded Last Taken Type Ferrous Sulfate [Feosol 325 MG tab] 325 mg PO BID #90 tablet 07/24/17 Unknown Rx Albuterol Sulfate [Ventolin HFA] 2 puff IH Q4H PRN #1 hfa.aer.ad 03/06/18 Unknown Rx Fluticasone [Flonase] 1 spray NS QDAY #1 bottle 03/06/18 Unknown Rx Metoclopramide [Reglan TAB] 10 mg PO TID PRN #30 tab 03/29/18 Unknown Rx diphenhydrAMINE [Benadryl CAP] 25 mg PO Q8HR PRN #30 capsule 03/29/18 Unknown Rx Ibuprofen [Ibuprofen 800] 800 mg PO Q6HR PRN #14 tablet 08/24/18 Unknown Rx cephALEXin [Keflex] 500 mg PO Q6HR #40 capsule 11/14/18 Unknown Rx diphenhydrAMINE [Benadryl] 25 mg IV Q6HR PRN #24 vial 11/14/18 Unknown Rx Allergies Allergy/AdvReac Type Severity Reaction Status Date / Time Penicillins Allergy Severe Rash Verified 01/21/15 17:01 ED Review of Systems Constitutional: denies: chills, fever Respiratory: denies: cough, shortness of breath, wheezing Cardiovascular: denies: chest pain, palpitations Gastrointestinal: abdominal pain. denies: nausea, diarrhea Genitourinary: other (vaginal bleeding during ). denies: urgency, dys uria, discharge Musculoskeletal: denies: back pain, joint swelling, arthralgia Skin: denies: rash, lesions Neurological: denies: headache, weakness, paresthesias Psychiatric: denies: anxiety, depression ED Past Medical Hx - Past Medical History Hx Hypertension: No Hx Congestive Heart Failure: No Hx Diabetes: No Hx Deep Vein Thrombosis: No Hx GERD: Yes Hx Renal Disease: No Hx Sickle Cell Disease: No Hx Headaches / Migraines: Yes (MIGRAINES) Hx Seizures: No Hx Asthma: Yes (last used inhaler 2 days ago) Hx COPD: No Hx HIV: No Additional medical history: Gallbladder removed via LAP 06/16/16. gestional diabetes with pregnacies. - Surgical History Hx Cholecystectomy: Yes (06/2016) Additional Surgical History: Stent to kidney during , subsequently removed. D&C 2011 - Social History Smoking Status: Never Smoker Substance Use Type: None - Medications Home Medications: Home Medications Medication Instructions Recorded Confirmed Last Taken Type Insulin NPH Human Isophane 24 1000units SUB-Q QHS 07/21/17 07/21/17 Unknown History [Humulin N] valACYclovir [Valtrex] 1 tab PO QDAY 07/21/17 07/21/17 Unknown History Ferrous Sulfate [Feosol 325 MG tab] 325 mg PO BID #90 tablet 07/24/17 Unknown Rx Albuterol Sulfate [Ventolin HFA] 2 puff IH Q4H PRN #1 hfa.aer.ad 03/06/18 Unknown Rx Fluticasone [Flonase] 1 spray NS QDAY #1 bottle 03/06/18 Unknown Rx Metoclopramide [Reglan TAB] 10 mg PO TID PRN #30 tab 03/29/18 Unknown Rx diphenhydrAMINE [Benadryl CAP] 25 mg PO Q8HR PRN #30 capsule 03/29/18 Unknown Rx Ibuprofen [Ibuprofen 800] 800 mg PO Q6HR PRN #14 tablet 08/24/18 Unknown Rx cephALEXin [Keflex] 500 mg PO Q6HR #40 capsule 11/14/18 Unknown Rx diphenhydrAMINE [Benadryl] 25 mg IV Q6HR PRN #24 vial 11/14/18 Unknown Rx ED Physical Exam - General Limitations: No Limitations General appearance: alert, in no apparent distress, obese (morbidly) - Respiratory Respiratory exam: Present: normal lung sounds bilaterally. Absent: respiratory distress - Cardiovascular Cardiovascular Exam: Present: regular rate, normal rhythm. Absent: systolic murmur, diastolic murmur, rubs, gallop - GI/Abdominal GI/Abdominal exam: Present: soft, normal bowel sounds. Absent: distended, tenderness, guarding, rebound, rigid - Back Exam Back exam: Absent: CVA tenderness (R), CVA tenderness (L) - Neurological Exam Neurological exam: Present: alert, oriented X3 - Psychiatric Psychiatric exam: Present: normal affect, normal mood - Skin Skin exam: Present: warm, dry, intact, normal color. Absent: rash ED Medical Decision Making - Lab Data Result diagrams: 12/11/18 20:50 ED Disposition Clinical Impression: Threatened miscarriage, Pelvic pain during in first trimester, antepartum Disposition: DC-01 TO HOME OR SELFCARE Condition: Stable Instructions: Threatened Miscarriage (ED), Abdominal Pain in (ED) Additional Instructions: MAINTAIN A COMPLETE PELVIC REST WITH NO SEXUAL ACTIVITY OR HEAVY LIFTING. FOLLOW UP WITH THE [facility]IL[facility] CEMENTER HAND PHYSICIAN FIRST THING THIS MORNING FOR FURTHER EVALUATION. TAKE TYLENOL NEEDED FOR PAIN. RETURN TO THE ED IMMEDIATELY IF SYMPTOMS GET WORSE. Referrals: ANN HIGHTOWER MD [Primary Care Provider] - 3-5 Days Print Language: VATICAN CITIZEN <MANDI HERRERA - Last Filed: 12/12/18 06:25> ED Review of Systems ROS: Stated complaint: BLEEDING/7WKS /CRAMPS Other details as noted in HPI ED Course Vital Signs 12/11/18 20:42 Temperature 98 F Pulse Rate 89 Respiratory 18 Rate Blood Pressure 154/75 O2 Sat by Pulse 100 Oximetry - Reevaluation(s) Reevaluation #1: 12/12/18 06:18 This is a 28-year-old white female who presented to the ED with vaginal bleeding and suprapubic pain. Patient is approximately 9 weeks gestation. Patient was initially evaluated and treated by Lindsey Hurley SEPARATIONS SCIENTIST from home I assumed care of the patient. The lab test results were reviewed and are unremarkable. Transvaginal ultrasound report shows a single viable intrauterine gestation with crown-rump length of 4.1 cm corresponding with an EGA of 9 weeks and 4 days. E stimated delivery date is 07/17/2019. Heart rate is 169 bpm. There is a moderately-sized subchorionic hemorrhage which measures 3.5 cm in maximal dimension. The left ovary contains a simple cyst measuring 2 cm. The right ovary is not visualized. No free fluid identified. Patient was sent home and advised to follow-up with LAUNDRY ROOM ATTENDANT physician this morning for further evaluation. Patient was advised to strictly maintain a complete pelvic rest with no sexual activity or heavy lifting until evaluated by the HOT PACKER physician. Patient was advised to return to the ED immediately if symptoms get worse. ED Medical Decision Making - Lab Data Result diagrams: 12/11/18 20:50 - Radiology Data Radiology results: report reviewed, [place] [address] Ultrasound Report Signed Patient: CLARITA REBOLLEDO MR#: [id number] : 1990 Acct:[id number] Age/Sex: 28 / F ADM Date: 12/11/18 Loc: ED Attending Dr: Ordering Physician: AJAY FELICIANO Date of Service: 12/12/18 Procedure(s): US OB transvaginal Accession Number(s): [id number] cc: AJAY FELICIANO OB Ultrasound HISTORY: vaginal bleeding, 8 weeks gestation. TECHNIQUE: Grayscale and color Doppler imaging performed. COMPARISON: OB ultrasound from 11/14/2018 FINDINGS: There is a single viable intrauterine gestation with crown-rump length of 4.1 cm corresponding with an EGA of 9 weeks and 4 days. Estimated delivery date is 07/17/2019. Heart rate is 169 bpm. There is a moderately-sized subchorionic hemorrhage which measures 3.5 cm in maximal dimension. The left ovary contains a simple cyst measuring 2 cm. The right ovary is not visualized. No free fluid identified. IMPRESSION: 1. Single viable intrauterine gestation as above with moderate-sized subchorionic hemorrhage. 2. Simple left ovarian cyst. 3. Right ovary not visualized on this exam. Signer Name: Shawn Arzola MD Signed: 12/12/2018 5:08 AM Workstation Name: [id number] Transcribed By: IRVING Dictated By: Shawn Arzola MD Electronically Authenticated By: Shawn Arzola MD Signed Date/Time: 12/12/18 0505 - Medical Decision Making This is a 28-year-old white female who presented to the ED with vaginal bleeding and suprapubic pain. Patient is approximately 9 weeks gestation. Patient was initially evaluated and treated by Lindsey Hurley NP from home I assumed care of the patient. The lab test results were reviewed and are unremarkable. Transvaginal ultrasound report shows a single viable intrauterine gestation with crown-rump length of 4.1 cm corresponding with an EGA of 9 weeks and 4 days. Estimated delivery date is 07/17/2019. Heart rate is 169 bpm. There is a moderately-sized subchorionic hemorrhage which measures 3.5 cm in maximal dimension. The left ovary contains a simple cyst measuring 2 cm. The right ovary is not visualized. No free fluid identified. Patient was sent home and advised to follow-up with LAUNDRY ROOM ATTENDANT physician this morning for further evaluation. Patient was advised to strictly maintain a complete pelvic rest with no sexual activity or heavy lifting until evaluated by the HOT PACKER physician. Patient was advised to return to the ED immediately if symptoms get worse. - Differential Diagnosis Threatened miscarriage; pelvic pain; demise, acute UTI; Ovarian cyst Critical care attestation.: If time is entered above; I have spent that time in minutes in the direct care of this critically ill patient, excluding procedure time. ED Disposition Is pt being admited?: No Does the pt Need Aspirin: No Time of Disposition: 06:24
--- NOTE | 2018-12-12 05:12 | Ultrasound Report ---
OB Ultrasound HISTORY: vaginal bleeding, 8 weeks gestation. TECHNIQUE: Grayscale and color Doppler imaging performed. COMPARISON: OB ultrasound from 11/14/2018 FINDINGS: There is a single viable intrauterine gestation with crown-rump length of 4.1 cm correspond ing with an EGA of 9 weeks and 4 days. Estimated delivery date is 07/17/2019. Heart rate is 169 bpm. There is a moderately-sized subchorionic hemorrhage which measures 3.5 cm in maximal dimension. The l eft ovary contains a simple cyst measuring 2 cm. The right ovary is not visualized. No free fluid froilan ntified. IMPRESSION: 1. Single viable intrauterine gestation as above with moderate-sized subchorionic hemorrhage. 2. Simple left ovarian cyst. 3. Right ovary not visualized on this exam. Signer Name: Shawn Arzola MD Signed: 12/12/2018 5:08 AM Workstation Name: [id number]
[2018-12-12 07:18] VITALS: BP 144/70
== END 2018-12-12 06:30 | disposition home or self-care (01) ==
LOC: ED 20:39
DX: O20.0 Threatened abortion (principal); O99.611 Diseases of the digestive system complicating pregnancy, first trimester; K21.0 Gastro-esophageal reflux disease with esophagitis; O26.891 Other specified pregnancy related conditions, first trimester; G43.909 Migraine, unspecified, not intractable, without status migrainosus; O99.511 Diseases of the respiratory system complicating pregnancy, first trimester; J45.909 Unspecified asthma, uncomplicated; Z90.49 Acquired absence of other specified parts of digestive tract; Z79.899 Other long term (current) drug therapy; Z3A.08 8 weeks gestation of pregnancy; Z88.0 Allergy status to penicillin
CPT/HCPCS: 36415; 76801; 76802; 76817; 81001; 84702; 85025; 86850; 86900; 86901; 99284

== ENCOUNTER 2019-01-05 20:52 | Emergency (ER) | payer MEDICAID ==
--- NOTE | 2019-01-05 22:43 | Emergency Department Report ---
Blank Doc - Documentation Documentation: This is a 28-year-old female that presents with a typical migrane headaches. Patient denies worst headache or thunderclarp headache. Patient denies any other symptoms or complaints. This initial assessment/diagnostic orders/clinical plan/treatment(s) is/are subject to change based on patient's health status, clinical progression and re- assessment by fellow clinical providers in the ED. Further treatment and workup at subsequent clinical providers discretion. Patient/guardians urged not to elope from the ED as their condition may be serious if not clinically assessed and managed. Initial orders include: 1- Patient sent to [facility] for further evaluation and treatment
[2019-01-06] MEDS ORDERED: REGLAN IV ONE (01:58)
[2019-01-06] MEDS ORDERED: BENADRYL IV ONE (01:58)
[2019-01-06] MEDS ORDERED: TYLENOL PO ONE (02:00)
--- NOTE | 2019-01-06 05:01 | Emergency Department Report ---
ED Headache HPI - General Chief Complaint: Headache Stated Complaint: MIGRAINES Time Seen by Provider: 01/05/19 22:42 Source: patient - History of Present Illness Initial Comments: Patient is a 28-year-old white female with a history of migraine headaches and who is approximately the 13 weeks gestation who presents to the ED with complaint of acute onset persistent severe diffuse frontal headache with nausea and vomiting for the last 24 hours. Patient denies dizziness, fever, chills, chest pain, shortness of breath, abdominal pain, nasal and sinus congestion, vaginal bleeding, syncope, neck pain, change in vision, back pain or diarrhea or sore throat. Patient stated that she has been taking Tylenol at home with no relief. Timing/Duration: 24 hours, constant, waxing and waning Quality: severe, pressure, sharp, throbbing Head Injury Location: frontal Recent Head Trauma: no recent headache/trauma, frequent headaches Modifying Factors: improves with: medication Associated Symptoms: denies symptoms, nausea/vomiting. denies: confusion, fatigue, facial pain, flushing, loss of consciousness, nasal congestion, nasal drainage, seizures, sinus infection, stiff neck, vision changes, weakness Allergies/Adverse Reactions: Allergies Penicillins Allergy (Severe, Verified 01/21/15 17:01) Rash Home Medications: Ambulatory Orders Insulin NPH Human Isophane [Humulin N] 24 1000units SUB-Q QHS 07/21/17 valACYclovir [Valtrex] 1 tab PO QDAY 07/21/17 Ferrous Sulfate [Feosol 325 MG tab] 325 mg PO BID #90 tablet 07/24/17 Albuterol Sulfate [Ventolin HFA] 2 puff IH Q4H PRN #1 hfa.aer.ad 03/06/18 Fluticasone [Flonase] 1 spray NS QDAY #1 bottle 03/06/18 Metoclopramide [Reglan TAB] 10 mg PO TID PRN #30 tab 03/29/18 diphenhydrAMINE [Benadryl CAP] 25 mg PO Q8HR PRN #30 capsule 03/29/18 Ibuprofen [Ibuprofen 800] 800 mg PO Q6HR PRN #14 tablet 08/24/18 cephALEXin [Keflex] 500 mg PO Q6HR #40 capsule 11/14/18 diphenhydrAMINE [Benadryl] 25 mg IV Q6HR PRN #24 vial 11/14/18 Acetaminophen/Codeine [Tylenol /Codeine # 3 tab] 1 tab PO Q6H PRN #12 tab 01/06/19 Promethazine [Phenergan] 25 mg PO Q6HR PRN #20 tab 01/06/19 ED Review of Systems ROS: Stated complaint: MIGRAINES Other details as noted in HPI Constitutional: denies: chills, fever Eyes: denies: eye pain, eye discharge, vision change ENT: denies: ear pain, throat pain Respiratory: denies: cough, shortness of breath, wheezing Cardiovascular: denies: chest pain, palpitations Endocrine: no symptoms reported Gastrointestinal: nausea, vomiting. denies: abdominal pain, diarrhea Genitourinary: denies: urgency, dysuria, discharge Musculoskeletal: denies: back pain, joint swelling, arthralgia Skin: denies: rash, lesions Neurological: headache. denies: weakness, paresthesias Psychiatric: denies: anxiety, depression Hematological/Lymphatic: denies: easy bleeding, easy bruising ED Past Medical Hx - Past Medical History Previous Medical History?: Yes Hx Hypertension: No Hx Congestive Heart Failure: No Hx Diabetes: No Hx Deep Vein Thrombosis: No Hx GERD: Yes Hx Renal Disease: No Hx Sickle Cell Disease: No Hx Headaches / Migraines: Yes (MIGRAINES) Hx Seizures: No Hx Asthma: Yes (last used inhaler 2 days ago) Hx COPD: No Hx HIV: No Additional medical history: Gallbladder removed via LAP 06/16/16. gestional diabetes with pregnacies. - Surgical History Past Surgical History?: Yes Hx Cholecystectomy: Yes (06/2016) Additional Surgical History: Stent to kidney during , subsequently removed. D&C 2011 - Social History Smoking Status: Never Smoker Substance Use Type: None - Medications Home Medications: Home Medications Medication Instructions Recorded Confirmed Last Taken Type Insulin NPH Human Isophane 24 1000units SUB-Q QHS 07/21/17 07/21/17 Unknown History [Humulin N] valACYclovir [Valtrex] 1 tab PO QDAY 07/21/17 07/21/17 Unknown History Ferrous Sulfate [Feosol 325 MG tab] 325 mg PO BID #90 tablet 07/24/17 Unknown Rx Albuterol Sulfate [Ventolin HFA] 2 puff IH Q4H PRN #1 hfa.aer.ad 03/06/18 Unknown Rx Fluticasone [Flonase] 1 spray NS QDAY #1 bottle 03/06/18 Unknown Rx Metoclopramide [Reglan TAB] 10 mg PO TID PRN #30 tab 03/29/18 Unknown Rx diphenhydrAMINE [Benadryl CAP] 25 mg PO Q8HR PRN #30 capsule 03/29/18 Unknown Rx Ibuprofen [Ibuprofen 800] 800 mg PO Q6HR PRN #14 tablet 08/24/18 Unknown Rx cephALEXin [Keflex] 500 mg PO Q6HR #40 capsule 11/14/18 Unknown Rx diphenhydrAMINE [Benadryl] 25 mg IV Q6HR PRN #24 vial 11/14/18 Unknown Rx Acetaminophen/Codeine [Tylenol 1 tab PO Q6H PRN #12 tab 01/06/19 Unknown Rx /Codeine # 3 tab] Promethazine [Phenergan] 25 mg PO Q6HR PRN #20 tab 01/06/19 Unknown Rx ED Physical Exam - General Limitations: No Limitations General appearance: alert, in no apparent distress - Head Head exam: Present: atraumatic, normocephalic, normal inspection - Eye Eye exam: Present: normal appearance, PERRL, EOMI Pupils: Present: normal accommodation - ENT ENT exam: Present: normal exam, normal orophraynx, mucous membranes moist, TM's normal bilaterally, normal external ear exam - Neck Neck exam: Present: normal inspection, full ROM - Respiratory Respiratory exam: Present: normal lung sounds bilaterally. Absent: respiratory distress, rhonchi, chest wall tenderness, accessory muscle use, decreased breath sounds - Cardiovascular Cardiovascular Exam: Present: normal rhythm, tachycardia, normal heart sounds. Absent: systolic murmur, diastolic murmur, rubs, gallop - GI/Abdominal GI/Abdominal exam: Present: soft, normal bowel sounds. Absent: tenderness, guarding, rebound, hyperactive bowel sounds, hypoactive bowel sounds, organomegaly, mass - Rectal Rectal exam: Present: deferred - Extremities Exam Extremities exam: Present: normal inspection, full ROM, normal capillary refill - Back Exam Back exam: Present: normal inspection, full ROM. Absent: tenderness, CVA tenderness (R), CVA tenderness (L) - Neurological Exam Neurological exam: Present: alert, oriented X3, CN II-XII intact, normal gait, reflexes normal - Psychiatric Psychiatric exam: Present: normal affect, normal mood - Skin Skin exam: Present: warm, dry, intact, normal color. Absent: rash ED Course Vital Signs 01/05/19 01/06/19 22:42 02:27 Temperature 98.7 F Pulse Rate 104 H Respiratory 16 16 Rate Blood Pressure 150/83 O2 Sat by Pulse 97 Oximetry - Reevaluation(s) Reevaluation #1: 01/06/19 05:02 This is a 28-year-old female with a history of migraine headaches who presents to the ED with worsening headache and nausea and vomiting. In the ED, the patient is alert and oriented 3 and is not in distress but tachycardic in triage. Patient was treated for headache and on reevaluation, the patient's headache resolved as well as nausea and vomiting. Patient was discharged home on medications and advised to follow-up with OB / SENIOR RISK MANAGER physician or primary care physician in 7-10 days for reevaluation, or return to the ED immediately if sy mptoms get worse. ED Medical Decision Making - Medical Decision Making This is a 28-year-old female with a history of migraine headaches who presents to the ED with worsening headache and nausea and vomiting. In the ED, the patient is alert and oriented 3 and is not in distress but tachycardic in triage. Patient was treated for headache and on reevaluation, the patient's headache resolved as well as nausea and vomiting. Patient was discharged home on medications and advised to follow-up with OB / SENIOR RISK MANAGER physician or primary care physician in 7-10 days for reevaluation, or return to the ED immediately if symptoms get worse. - Differential Diagnosis migraine headache, vomiting, sinusitis Critical care attestation.: If time is entered above; I have spent that time in minutes in the direct care of this critically ill patient, excluding procedure time. ED Disposition Clinical Impression: Nausea and vomiting in adult Migraine headache without aura Qualifiers: Status migrainosus presence: with status migrainosus Intractability: not intractable Qualified Code(s): G43.001 - Migraine without aura, not intractable, with status migrainosus Disposition: DC-01 TO HOME OR SELFCARE Is pt being admited?: No Does the pt Need Aspirin: No Condition: Stable Instructions: Migraine Headache (ED), Acute Nausea and Vomiting (ED) Additional Instructions: Take medications with food, drink plenty of fluids and follow-up with your primary care physician in 7-10 days for reevaluation. Return to the ED immediately if symptoms get worse. Prescriptions: Promethazine [Phenergan] 25 mg PO Q6HR PRN #20 tab PRN Reason: Nausea Acetaminophen/Codeine [Tylenol /Codeine # 3 tab] 1 tab PO Q6H PRN #12 tab PRN Reason: Pain , Severe (7-10) Referrals: MARIO PATEL MD [Primary Care Provider] - 3-5 Days Time of Disposition: 05:00 Print Language: POLISH
[2019-01-06 05:51] VITALS: BP 147/84
== END 2019-01-06 05:05 | disposition home or self-care (01) ==
LOC: ED 20:52
DX: O99.351 Diseases of the nervous system complicating pregnancy, first trimester (principal); G43.909 Migraine, unspecified, not intractable, without status migrainosus; O21.8 Other vomiting complicating pregnancy; K21.9 Gastro-esophageal reflux disease without esophagitis; J45.909 Unspecified asthma, uncomplicated; Z90.49 Acquired absence of other specified parts of digestive tract; Z3A.13 13 weeks gestation of pregnancy
CPT/HCPCS: 96374; 96375; 99282; J1200; J2765

== ENCOUNTER 2019-04-26 11:46 | Outpatient (CLI) | payer MEDICAID ==
[2019-04-26 12:43] LABS: Bacteria,Urine 1+ /HPF (Negative); Bilirubin,Urine NEG (Negative); Blood,Urine NEG (Negative); Color,Urine Yellow (Yellow); Mucus,Urine FEW /HPF; Protein,Urine <15 mg/dL mg/dL (Negative); Urobilinogen,Urine < 2.0 mg/dL (<2.0)
[2019-04-26] MEDS ORDERED: BUTALB/ACETAMINOPHEN/CAFFEINE TAB PO ONE (13:00)
[2019-04-26] MEDS ORDERED: ONDANSETRON 4 MG ODT TAB PO ONE (13:00)
[2019-04-26 14:47] LABS: Hematocrit 35.6 % (30.3-42.9); Hemoglobin 12.1 gm/dl (10.1-14.3); Mean Corpuscular HGB Conc 34 % (30-34); Mean Corpuscular Volume 84 fl (79-97); Platelet Count 200 K/mm3 (140-440); Red Blood Count 4.26 M/mm3 (3.65-5.03); Red Cell Distribution Width 14.5 % (13.2-15.2)
[2019-04-26 15:08] LABS: Alanine Aminotransferase 10 units/L (7-56); Uric Acid 3.7 mg/dL (3.5-7.6)
[2019-04-26 15:22] VITALS: BP 114/58
== END 2019-04-26 15:48 | disposition home or self-care (01) ==
LOC: TRG 11:46
PROVIDERS: ATTEND Obstetrics & Gynecology
DX: O47.02 False labor before 37 completed weeks of gestation, second trimester (principal); Z3A.27 27 weeks gestation of pregnancy
CPT/HCPCS: 36415; 59025; 81001; 82565; 83615; 84450; 84460; 84550; 85027; Q0162

== ENCOUNTER 2019-05-29 21:13 | Outpatient (CLI) | payer MEDICAID ==
[2019-05-29] MEDS ORDERED: LACTATED RINGERS 1,000 ML IV ONE ×2 (22:51→23:24)
[2019-05-29] MEDS ORDERED: ACETAMINOPHEN 500 MG TAB PO ONE (23:44)
[2019-05-29 23:47] LABS: Bacteria,Urine 1+ /HPF (Negative); Bilirubin,Urine NEG (Negative); Blood,Urine NEG (Negative); Color,Urine Yellow (Yellow); Mucus,Urine 3+ /HPF; Protein,Urine <15 mg/dL mg/dL (Negative)
[2019-05-30 00:42] VITALS: BP 116/59
--- NOTE | 2019-05-30 00:49 | Ultrasound Report ---
ULTRASOUND ABDOMEN, LIMITED (RIGHT UPPER QUADRANT) INDICATION: right upper abdominal pain. COMPARISON: 06/09/2016 FINDINGS: Pancreas: Not well seen. The imaged portions are unremarkable. Liver: The liver is enlarged measuring 20 cm in length. No focal hepatic lesions are seen. Gallbladder: Cholecystectomy Bile ducts: Normal. Common Bile Duct measures 7 mm. Free fluid: None. Additional Findings: None. IMPRESSION: 1. The liver is enlarged. No focal hepatic lesions are seen. Signer Name: Ozzy Vargas MD Signed: 05/30/2019 12:44 AM Workstation Name: [id number]
[2019-05-30] MEDS ORDERED: OXYTOCIN 20 UNIT/1000ML DRIP 0 MILLIUNITS/0 ML BAG IV ONE (04:31)
== END 2019-05-30 01:45 | disposition home or self-care (01) ==
LOC: TRG 21:13
PROVIDERS: ATTEND Obstetrics & Gynecology
DX: O26.893 Other specified pregnancy related conditions, third trimester (principal); R10.10 Upper abdominal pain, unspecified; M54.5 Low back pain; O99.513 Diseases of the respiratory system complicating pregnancy, third trimester; J45.909 Unspecified asthma, uncomplicated; O24.913 Unspecified diabetes mellitus in pregnancy, third trimester; O99.353 Diseases of the nervous system complicating pregnancy, third trimester; G43.909 Migraine, unspecified, not intractable, without status migrainosus; O99.213 Obesity complicating pregnancy, third trimester; Z79.4 Long term (current) use of insulin; Z3A.32 32 weeks gestation of pregnancy
CPT/HCPCS: 76705; 81001; 82962; 96360; J7120; J2590

== ENCOUNTER 2019-06-28 23:43 | Outpatient (CLI) | payer MEDICAID ==
[2019-06-29] MEDS ORDERED: LACTATED RINGERS 1,000 ML IV ONE (00:40)
[2019-06-29] MEDS ORDERED: ACETAMINOPHEN 500 MG TAB PO ONE (01:08)
[2019-06-29 01:17] LABS: Hematocrit 32.9 % (30.3-42.9); Hemoglobin 11.2 gm/dl (10.1-14.3); Mean Corpuscular HGB Conc 34 % (30-34); Mean Corpuscular Volume 81 fl (79-97); Platelet Count 184 K/mm3 (140-440); Red Blood Count 4.07 M/mm3 (3.65-5.03); Red Cell Distribution Width 14.8 % (13.2-15.2)
[2019-06-29 01:22] LABS: Bilirubin,Urine NEG (Negative); Blood,Urine NEG (Negative); Calcium Oxalate Crystals,Urine 2+; Color,Urine Yellow (Yellow); Mucus,Urine FEW /HPF; Protein,Urine <15 mg/dL mg/dL (Negative)
[2019-06-29 01:30] LABS: Alanine Aminotransferase 17 units/L (7-56)
[2019-06-29 03:33] VITALS: BP 107/64
--- NOTE | 2019-06-29 03:49 | Ultrasound Report ---
US OB BPP wo non-stress, US OB limited INDICATION / CLINICAL INFORMATION: decrease mvmt. COMPARISON: None available. FINDINGS: breathing movement = 2 Gross body movement = 2 tone = 2 Qualitative amniotic fluid volume = 2 Total biophysical score = 8/8 Amniotic fluid index is 9.1 cm. Presentation is Cephalic. heart rate is 144 beats per minute. IMPRESSION: biophysical profile = 12/08 Amniotic fluid index is normal. Presentation is currently cephalic. Signer Name: Kalen Kim MD Signed: 06/29/2019 3:44 AM Workstation Name: [email or web address]
[2019-06-29 04:07] LABS: Uric Acid 4.2 mg/dL (3.5-7.6)
== END 2019-06-29 03:45 | disposition home or self-care (01) ==
LOC: TRG 23:43
PROVIDERS: ATTEND Obstetrics & Gynecology
DX: O13.3 Gestational [pregnancy-induced] hypertension without significant proteinuria, third trimester (principal); R51 Headache; H53.8 Other visual disturbances; Z3A.36 36 weeks gestation of pregnancy
CPT/HCPCS: 36415; 59025; 76815; 76819; 81001; 82565; 83615; 84450; 84460; 84550; 85027

== ENCOUNTER 2019-06-30 10:26 | Outpatient (CLI) | payer MEDICAID ==
--- NOTE | 2019-06-30 12:00 | Vascular Lab Report ---
DUPLEX DOPPLER LOWER EXTREMITY VEINS, BILATERAL INDICATION: EDEMA/OBESITY/HTN. TECHNIQUE: Duplex doppler imaging was performed through the veins of both lower extremities using venous jhonny norman and other maneuvers. COMPARISON: None available. FINDINGS: Right Common femoral vein: Negative. Right Superficial femoral vein: Negative. Right Popliteal vein: Negative. Right Calf veins: Negative. Left Common femoral vein: Negative. Left Superficial femoral vein: Negative. Left Popliteal vein: Negative. Left Calf veins: Negative. Additional findings: None. IMPRESSION: Negative for DVT. Signer Name: Abiel Garcia MD Signed: 06/30/2019 11:55 AM Workstation Name: [id number]
== END 2019-06-30 10:27 | disposition home or self-care (01) ==
LOC: VAS 10:26
PROVIDERS: ATTEND Obstetrics & Gynecology
DX: I82.409 Acute embolism and thrombosis of unspecified deep veins of unspecified lower extremity (principal); E66.9 Obesity, unspecified; R60.9 Edema, unspecified; I10 Essential (primary) hypertension
CPT/HCPCS: 93970

== ENCOUNTER 2019-10-11 08:00 | Day surgery (SDC) | payer MEDICAID ==
[2019-10-10 10:46] LABS: Hematocrit 37.1 % (30.3-42.9); Hemoglobin 12.2 gm/dl (10.1-14.3); Mean Corpuscular HGB Conc 33 % (30-34); Mean Corpuscular Volume 77 fl (79-97); Platelet Count 233 K/mm3 (140-440)
[~2019-10-11 08:00] MED LIST: CELECOXIB 200 MG CAP PO NR; GABAPENTIN 300 MG CAP PO NR; LACTATED RINGERS 1,000 ML IV SCH; MAGNESIUM OXIDE 400 MG TAB PO SCH
[2019-10-11] MEDS ORDERED: HYDROmorphone 1 MG/1 ML INJ IV PRN (09:15)
--- NOTE | 2019-10-11 09:15 | Anesthesia Consultation ---
Anesthesia Consult and Med Hx Date of service: 10/11/19 - Airway Anesthetic Teeth Evaluation: Good ROM Head & Neck: Adequate Mental/Hyoid Distance: Adequate Mallampati Class: Class I Intubation Access Assessment: Good - Pulmonary Exam CTA: Yes - Cardiac Exam Cardiac Exam: RRR - Pre-Operative Health Status ASA Pre-Surgery Classification: ASA3 Proposed Anesthetic Plan: General - Pulmonary Hx Smoking: No Hx Asthma: Yes (last inhaler 6 months ago) Hx Respiratory Symptoms: No - Cardiovascular System Hx Hypertension: Yes (with only) Hx Heart Attack/AMI: No - Central Nervous System CVA: No - Gastrointestinal Hx Gastroesophageal Reflux Disease: No - Endocrine Hx End Stage Renal Disease: No Hx Liver Disease: No Hx Insulin Dependent Diabetes: No Hx Non-Insulin Dependent Diabetes: No Hx Thyroid Disease: No - Other Systems Hx Obesity: Yes (BMI 49) - Additional Comments Anesthesia Medical History Comments: No hx anesthetic complications.
--- NOTE | 2019-10-11 09:15 | Anesthesia Day of Surgery ---
Anesthesia Day of Surgery - Day of Surgery Patient Examined: Yes Patient H&P Reviewed: Yes Patient is NPO: Yes
[2019-10-11] MEDS ORDERED: MIDAZOLAM 2 MG/2 ML INJ IV NR (09:23)
--- NOTE | 2019-10-11 10:42 | Short Stay Summary ---
Short Stay Documentation Date of service: 10/11/19 Narrative H&P: 29-year-old -0-2-5 with unwanted fertility. The patient is aware of other contraceptive options. Patient desires to undergo permanent sterilization. - History Principal diagnosis: Unwanted fertility Past Medical History: diabetes, other (Asthma) Past Surgical History: cholecystectomy, Other (Dilatation and curettage) Social history: - Allergies and Medications Current Medications: Allergies Penicillins Allergy (Severe, Verified 10/05/19 14:01) Rash Home Medications Medication Instructions Recorded Confirmed Last Taken Type Albuterol Sulfate [Ventolin HFA] 2 puff IH Q4H PRN #1 hfa.aer.ad 03/06/18 10/11/19 6 Months Ago Rx ~04/11/19 Active Medications Celecoxib (Celebrex) 200 mg PO PREOP NR Stop: 10/11/19 20:00 Last Admin: 10/11/19 09:25 Dose: 200 mg Documented by: Gabapentin (Gabapentin) 600 mg PO PREOP NR Stop: 10/11/19 23:00 Last Admin: 10/11/19 09:25 Dose: 600 mg Documented by: Hydromorphone HCl (Dilaudid) 0.5 mg IV Q10MIN PRN PRN Reason: Pain , Severe (7-10) Lactated Ringer's (Lactated Ringers) 1,000 mls @ 100 mls/hr IV DIRECT SHWETHA Stop: 10/11/19 23:59 Last Admin: 10/11/19 09:45 Dose: 100 mls/hr Documented by: Magnesium Oxide (Mag-Ox) 400 mg PO PREOP SHWETHA Stop: 10/11/19 20:00 Last Admin: 10/11/19 09:25 Dose: 400 mg Documented by: Midazolam HCl (Versed) 2 mg IV ONCE NR Stop: 10/11/19 20:00 Last Admin: 10/11/19 09:48 Dose: 2 mg Documented by: - Physical exam General appearance: no acute distress Integumentary: no rash HEENT: Atraumatic Lungs: Clear to auscultation Breasts: deferred Heart: Regular rate Gastrointestinal: normal Female Genitourinary: deferred Rectal Exam: deferred Extremities: no ischemia Neurological: Normal gait - Brief post op/procedure progress note Date of procedure: 10/11/19 Pre-op diagnosis: Unwanted fertility Post-op diagnosis: same Procedure: Laparoscopy Bilateral salpingectomy Anesthesia: GETA Surgeon: BENITO WILLIAMSON Estimated blood loss: minimal Pathology: list (Fallopian tubes) Specimen disposition: to lab Condition: stable - Hospital course Hospital course: The patient was admitted the day of surgery and underwent a laparoscopy and bilateral salpingectomy. Please see operative note for details of surgery. Pos toperative course was uneventful. - Disposition Condition at discharge: Good Disposition: DC-01 TO HOME OR SELFCARE - Discharge Diagnoses (1) Unwanted fertility Status: Acute Short Stay Discharge Plan Activity: other Diet: regular (Pelvic rest for 1 week) Additional Instructions: Follow-up is not required Follow-up as needed Prescriptions: Ibuprofen [Motrin] 800 mg PO Q8HR PRN #30 tablet PRN Reason: Pain, Mild (1-3) HYDROcodone/APAP 5-325 [Oran 5/325] 1 each PO Q6HR PRN #20 tablet PRN Reason: Pain
[2019-10-11] MEDS ORDERED: BUPIVACAINE/PF (0.5%) 5 MG/1 ML 10 ML VIAL INFILTRATI ONE ×2 (10:54→11:53)
[2019-10-11] MEDS ORDERED: HYDROmorphone 1 MG/1 ML INJ ONE (10:59)
[2019-10-11] MEDS ORDERED: propofoL 200 MG/20 ML VIAL IV ONE ×2 (10:59→11:37)
[2019-10-11] MEDS ORDERED: LIDOCAINE MPF (2%) 20 MG/1 ML VIAL 5 ML ONE (11:01)
[2019-10-11] MEDS ORDERED: SUCCINYLCHOLINE CHLORIDE 200 MG/10 ML INJ MDV ONE (11:02)
[2019-10-11] MEDS ORDERED: ROCURONIUM 50 MG/5 ML INJ IV ONE (11:02)
[2019-10-11] MEDS ORDERED: SODIUM CHLORIDE 0.9% IRR 1,500 ML BOTTLE IR ONE (11:53)
[2019-10-11] MEDS ORDERED: GLYCOPYRROLATE 0.4 MG/2 ML INJ ONE (12:10)
[2019-10-11] MEDS ORDERED: NEOSTIGMINE 10MG/10 ML INJ MDV ONE (12:10)
[2019-10-11] MEDS ORDERED: KETOROLAC 30 MG/1 ML INJ ONE (12:13)
[2019-10-11] MEDS ORDERED: ONDANSETRON 4 MG/2 ML INJ ONE (12:13)
--- NOTE | 2019-10-11 13:12 | Operative Report ---
Operative Report Operative Report: Date of surgery: October 11, 2019 Preoperative diagnosis: Unwanted fertility Postoperative diagnosis: Same as above Procedure: Laparoscopy; bilateral salpingectomy Surgeon: Betty Patel M.D. Anesthesia: General endotracheal anesthesia Estimated blood loss: Minimal Findings: Normal uterus tubes and ovaries; right fallopian cyst Indication: 29-year-old -0-2-5 with unwanted fertility. Procedure: The patient was taken to the operating room and given general endotracheal anesthesia without complication. The patient is prepped and draped in a normal sterile fashion. A bivalve speculum was placed in the patient's vagina and a single-tooth tenaculum was placed on the anterior lip of the cervix .A uterine acorn manipulator was placed, and the bivalve speculum was then removed. Attention was then turned to the patient's abdomen where a 5 mm infraumbilical skin incision was then made. A Veress needle was placed and peritoneal entry was verified water-filled syringe. Insufflation of the peritoneal cavity was performed with CO2 gas. A 5 mm trocar was placed and the laparoscope was then inserted. The patient was then placed in Trendelenburg. A 7 mm suprapubic skin incision was then made. Under direct visualization a 7 mm trocar was then placed. An additional left lateral 5 mm trocar was placed under direct visualization general survey of the patient's abdomen revealed normal uterus tubes and ovaries with findings of a small right fallopian tube cyst. The fallopian tube was then followed out to the fimbriated end. The LigaSure device was used to coagulate and transect the mesosalpinx. The fallopian tube was excised from the uterus and ovary. This was performed on the contralateral side as well. The trocars were then removed. The pneumoperitoneum was then released. The 5 mm trocar laparoscope was then removed. The skin incisions were then closed with 4-0 Monocryl. The incisions were injected with quarter percent Marcaine. Dressings were applied to the incision. The vaginal instruments were then removed atraumatically. Then successfully extubated and taken to the recovery room. All sponge laps and needle counts were correct x2.
[2019-10-11] MEDS ORDERED: HYDROcodone/ACETAMINOPHEN 5-325 MG TAB PO PRN (13:19)
[2019-10-11 13:59] VITALS: BP 138/75
--- NOTE | 2019-10-11 18:00 | Post Anesthesia Evaluation ---
- Post Anesthesia Evaluation Patient Participated: Yes Airway Patent: Yes Stable Respiratory Function: Yes Nausea/Vomiting: No Temp > 96.8F: Yes Pain Manageable: Yes Adequeate Hydration: Yes Anesthesia Complications: No
== END 2019-10-11 08:01 | disposition home or self-care (01) ==
LOC: OR 08:00
PROVIDERS: ATTEND Obstetrics & Gynecology
DX: Z30.2 Encounter for sterilization (principal); N83.8 Other noninflammatory disorders of ovary, fallopian tube and broad ligament; G43.909 Migraine, unspecified, not intractable, without status migrainosus; E78.00 Pure hypercholesterolemia, unspecified; I10 Essential (primary) hypertension; J45.909 Unspecified asthma, uncomplicated; Z90.49 Acquired absence of other specified parts of digestive tract; E66.9 Obesity, unspecified; K21.9 Gastro-esophageal reflux disease without esophagitis; Z72.89 Other problems related to lifestyle; Z83.3 Family history of diabetes mellitus; Z88.0 Allergy status to penicillin; Z79.899 Other long term (current) drug therapy; Z98.890 Other specified postprocedural states; Z80.8 Family history of malignant neoplasm of other organs or systems; Z82.49 Family history of ischemic heart disease and other diseases of the circulatory system
CPT/HCPCS: 36415; 58661; 84703; 85027; 88302; 88304; J0330; J1170; J1885; J2250; J2405; J2704; J2710; J7120; U0003; 88305

== ENCOUNTER 2021-04-19 19:15 | Emergency (ER) | payer MEDICAID ==
[2021-04-19 19:29] VITALS: BP 142/98
[2021-04-19] MEDS ORDERED: LACTATED RINGERS 1,000 ML IV ONE (22:51)
[2021-04-19] MEDS ORDERED: METOCLOPRAMIDE 10 MG/2 ML INJ IV ONE (22:51)
[2021-04-19] MEDS ORDERED: BACITRACIN ZINC OINT 28.4 GM TP STA (22:51)
[2021-04-19] MEDS ORDERED: diphenhydrAMINE 50 MG/ML VIAL IV ONE (22:51)
[2021-04-19] MEDS ORDERED: ACETAMINOPHEN 325 MG TAB PO ONE (22:51)
--- NOTE | 2021-04-19 22:52 | Emergency Department Report ---
ED General Adult HPI - General Chief complaint: Headache Stated complaint: HEADACHE PUI?: Yes Time Seen by Provider: 04/19/21 21:16 Source: patient, EMS ( EMS documentation not available at time of chart dictation ), RN notes reviewed, old records reviewed Mode of arrival: Stretcher Limitations: No Limitations - History of Present Illness Initial comments: Ms. Mckeon is a 30-year-old female. She has a past medical history of body mass index of 49.4, chronic migraines, and diabetes. She presents to the ER today with a complaint of nontraumatic headache. The headache is frontal and bitemporal. It started on the day of presentation. The headache is not sudden or thunderclap in nature. The headache is not maximal in intensity at onset. The headache is not described as the worst headache of her life. She has had wo rse headaches in the past. The patient is not COVID-19 vaccinated. She is mildly nauseous. She has no loss of taste or smell. She has body aches. She has lower back pain. She also has lower abdominal cramping. She also endorses urinary frequency and urgency. She was treated appropriately here in the emergency room, and endorsed that her symptoms felt improved. -: Gradual, Sudden Location: head, back, abdomen Severity scale (0 -10): 10 Consistency: constant Improves with: medication, rest Worsens with: none - Related Data Previous Rx's Medication Instructions Recorded Last Taken Type Albuterol Sulfate [Ventolin HFA] 2 puff IH Q4H PRN #1 hfa.aer.ad 03/06/18 6 Months Ago Rx ~04/11/19 Acetaminophen [Non-Aspirin Extra 500 mg PO Q6HR PRN #30 tablet 04/20/21 Unknown Rx Strength] Ibuprofen [Motrin] 600 mg PO Q8H PRN #30 tablet 04/20/21 Unknown Rx Metoclopramide [Reglan] 10 mg PO QID PRN #30 tablet 04/20/21 Unknown Rx Nitrofurantoin [place]/M-Cryst 100 mg PO Q12HR #13 capsule 04/20/21 Unknown Rx [Macrobid CAP] Allergies Allergy/AdvReac Type Severity Reaction Status Date / Time Penicillins Allergy Severe Rash Verified 10/05/19 14:01 ED Review of Systems ROS: Stated complaint: HEADACHE Other details as noted in HPI Constitutional: malaise, other (Denies loss of taste and smell). denies: fever Eyes: denies: eye discharge Respiratory: denies: cough Cardiovascular: denies: chest pain Gastrointestinal: nausea, other (Abdominal cramp) Genitourinary: frequency Musculoskeletal: back pain, arthralgia Neurological: headache Psychiatric: anxiety ED Past Medical Hx - Past Medical History Hx Hypertension: Yes (gestational) Hx Congestive Heart Failure: No Hx Diabetes: Yes (gestational) Hx Deep Vein Thrombosis: No Hx GERD: Yes Hx Renal Disease: No (kidney stones 2012) Hx Sickle Cell Disease: No Hx Headaches / Migraines: Yes (MIGRAINES) Hx Seizures: No Hx Asthma: Yes (last attack 1 year ago) Hx COPD: No Hx HIV: No Additional medical history: Gallbladder removed via LAP 06/16/16. gestjeremías rawls with pregnacies. - Surgical History Hx Cholecystectomy: Yes (06/2016) Additional Surgical History: Stent to kidney during , subsequently removed. D&C 2011 - Social History Smoking Status: Unknown if ever smoked Substance Use Type: None - Medications Home Medications: Home Medications Medication Instructions Recorded Confirmed Last Taken Type Albuterol Sulfate [Ventolin HFA] 2 puff IH Q4H PRN #1 hfa.aer.ad 03/06/18 10/11/19 6 Months Ago Rx ~04/11/19 Acetaminophen [Non-Aspirin Extra 500 mg PO Q6HR PRN #30 tablet 04/20/21 Unknown Rx Strength] Ibuprofen [Motrin] 600 mg PO Q8H PRN #30 tablet 04/20/21 Unknown Rx Metoclopramide [Reglan] 10 mg PO QID PRN #30 tablet 04/20/21 Unknown Rx Nitrofurantoin [place]/M-Cryst 100 mg PO Q12HR #13 capsule 04/20/21 Unknown Rx [Macrobid CAP] ED Physical Exam - General Limitations: No Limitations General appearance: alert, anxious, in distress, obese - Head Head exam: Present: atraumatic, normocephalic - Eye Eye exam: Present: normal appearance, PERRL, EOMI. Absent: nystagmus - ENT ENT exam: Present: normal exam, normal orophraynx, mucous membranes moist, normal external ear exam - Neck Neck exam: Present: normal inspection, full ROM. Absent: tenderness, meningismus - Respiratory Respiratory exam: Present: normal lung sounds bilaterally. Absent: respiratory distress, wheezes, rales, rhonchi, stridor, decreased breath sounds - Cardiovascular Cardiovascular Exam: Present: normal rhythm, tachycardia, normal heart sounds. Absent: bradycardia, irregular rhythm, systolic murmur, diastolic murmur, rubs, gallop - GI/Abdominal GI/Abdominal exam: Present: soft. Absent: distended, tenderness, guarding, rebound, rigid, pulsatile mass - Extremities Exam Extremities exam: Present: normal inspection, full ROM, other (2+ pulses noted in the bilateral upper and lower extremities. There is no palpable cord. negative Homans sign. Muscular compartments are soft. The pelvis is stable.). Absent: pedal edema, calf tenderness - Back Exam Back exam: Present: normal inspection, full ROM. Absent: tenderness, CVA tenderness (R), CVA tenderness (L), paraspinal tenderness, vertebral tenderness - Neurological Exam Neurological exam: Present: alert, oriented X3, normal gait, other (No facial droop. Tongue midline. Extraocular movements intact bilaterally. Facial sensation intact to light touch in V1, V2, V3 distribution bilaterally. 5 and a 5 strength in 4 extremities. Sensation intact to light touch in 4 extremities.). Absent: motor sensory deficit - Psychiatric Psychiatric exam: Present: anxious - Skin Skin exam: Present: warm, dry, intact, normal color. Absent: rash ED Course Vital Signs 04/19/21 04/20/21 19:28 01:35 Temperature 98.2 F Pulse Rate 120 H 101 H Respiratory 18 Rate Blood Pressure 142/98 [Left] O2 Sat by Pulse 95 Oximetry - Reevaluation(s) Reevaluation #1: 04/20/21 00:38 Differential diagnosis, including but not limited to: COVID-19, migraine headache, tension headache, cluster headache, urinary tract infection Assessment and plan: 30-year-old female, who is afebrile, with reassuring vital signs, with exception of tachycardia which is improving, with a complaint of headache. The patient is not COVID-19 vaccinated. The headache is frontal, bitemporal and throbbing. The headache is not sudden or thunderclap in nature. The headache is not maximal in intensity. The headache is not the worst headache of her life. There is no CVA tenderness. Urinalysis somewhat contaminated, but she does endorse urinary frequency, and dysuria. There is no CVA tenderness. Her abdomen is soft and benign, without rebound, guarding or peritoneal signs. She feels improved after appropriate interventions. She will be started on Macrobid, and discharged with appropriate headache medications. Also counseled to complete COVID-19 vaccination series 04/20/21 01:31 Patient feeling improved. Heart rate now 101 bpm. On reassessment, patient noted to be on her cellular phone. Back is nontender. Discussed findings with patient. She articulated understanding. All questions answered. 04/20/21 02:49 Patient's IV infiltrated. This has been brought to my attention by the care team. The left dorsal hand is minimally swollen. There is no significant tenderness. Capillary refill brisk and 2 seconds. There is no pain with passive range of motion of the digits and fingers. She has brisk radial pulses bilaterally. Warm compresses, Tylenol, Motrin, supportive care. Discussed this with the patient. She does not want the sphenopalatine ganglion block, and is asking to be discharged. 04/20/21 07:23 ED Medical Decision Making - Lab Data Result diagrams: 04/19/21 23:06 04/19/21 23:06 Vital Signs 04/19/21 19:28 Temperature 98.2 F Pulse Rate 120 H Respiratory 18 Rate Blood Pressure 142/98 [Left] O2 Sat by Pulse 95 Oximetry Lab Results 04/19/21 04/19/21 04/19/21 Range/Units 23:06 23:06 23:06 WBC 4.2 L (4.5-11.0) K/mm3 RBC 4.93 (3.65-5.03) M/mm3 Hgb 13.6 (10.1-14.3) gm/dl Hct 40.7 (30.3-42.9) % MCV 83 (79-97) fl MCH 28 (28-32) pg MCHC 33 (30-34) % RDW 13.9 (13.2-15.2) % Plt Count 211 (140-440) K/mm3 PT (12.2-14.9) Sec. INR (0.87-1.13) Sodium 136 L (137-145) mmol/L Potassium 3.6 (3.6-5.0) mmol/L Chloride 100.9 (98-107) mmol/L Carbon Dioxide 21 L (22-30) mmol/L Anion Gap 18 mmol/L BUN 10 (7-17) mg/dL Creatinine 0.6 (0.6-1.2) mg/dL Estimated GFR > 60 ml/min BUN/Creatinine Ratio 17 % Glucose 272 H (65-100) mg/dL Calcium 8.8 (8.4-10.2) mg/dL Magnesium 1.70 (1.7-2.3) mg/dL Total Creatine Kinase 54 (30-135) units/L HCG, Quant < 2 (0-4) mIU/mL Urine Color (Yellow) Urine Turbidity (Clear) Urine pH (5.0-7.0) Ur Specific [place] (1.003-1.030) Urine Protein (Negative) mg/dL Urine Glucose (UA) (Negative) mg/dL Urine Ketones (Negative) mg/dL Urine Blood (Negative) Urine Nitrite (Negative) Urine Bilirubin (Negative) Urine Urobilinogen (<2.0) mg/dL Ur Leukocyte Esterase (Negative) Urine WBC (Auto) (0.0-6.0) /HPF Urine RBC (Auto) (0.0-6.0) /HPF U Epithel Cells (Auto) (0-13.0) /HPF Urine Bacteria (Auto) (Negative) /HPF Urine Mucus /HPF 04/19/21 04/19/21 Range/Units 23:06 Unknown WBC (4.5-11.0) K/mm3 RBC (3.65-5.03) M/mm3 Hgb (10.1-14.3) gm/dl Hct (30.3-42.9) % MCV (79-97) fl MCH (28-32) pg MCHC (30-34) % RDW (13.2-15.2) % Plt Count (140-440) K/mm3 PT 13.3 (12.2-14.9) Sec. INR 0.91 (0.87-1.13) Sodium (137-145) mmol/L Potassium (3.6-5.0) mmol/L Chloride (98-107) mmol/L Carbon Dioxide (22-30) mmol/L Anion Gap mmol/L BUN (7-17) mg/dL Creatinine (0.6-1.2) mg/dL Estimated GFR ml/min BUN/Creatinine Ratio % Glucose (65-100) mg/dL Calcium (8.4-10.2) mg/dL Magnesium (1.7-2.3) mg/dL Total Creatine Kinase (30-135) units/L HCG, Quant (0-4) mIU/mL Urine Color Yellow (Yellow) Urine Turbidity Cloudy (Clear) Urine pH 5.0 (5.0-7.0) Ur Specific [place] 1.023 (1.003-1.030) Urine Protein 30 mg/dl (Negative) mg/dL Urine Glucose (UA) 50 (Negative) mg/dL Urine Ketones Neg (Negative) mg/dL Urine Blood Lg (Negative) Urine Nitrite Pos (Negative) Urine Bilirubin Neg (Negative) Urine Urobilinogen < 2.0 (<2.0) mg/dL Ur Leukocyte Esterase Lg (Negative) Urine WBC (Auto) 132.0 H (0.0-6.0) /HPF Urine RBC (Auto) 7.0 (0.0-6.0) /HPF U Epithel Cells (Auto) 45.0 H (0-13.0) /HPF Urine Bacteria (Auto) 4+ (Negative) /HPF Urine Mucus 3+ /HPF Critical care attestation.: If time is entered above; I have spent that time in minutes in the direct care of this critically ill patient, excluding procedure time. ED Disposition Clinical Impression: COVID-19 vaccination not done, Headache, Urinary frequency Disposition: 01 HOME / SELF CARE / HOMELESS Is pt being admited?: No Does the pt Need Aspirin: No Condition: Good Instructions: COVID-19, General Headache Without Cause, Urinary Tract Infection, Adult Additional Instructions: I recommend that the patient complete outpatient COVID-19 vaccination series recommend that patient take the prescribed pain medication, nausea medication, headache medication and antibiotics as directed. Urine cultures were sent today, and results will be available in the next 3 to 5 days. Please have your primary care doctor contact the medical records department to obtain culture results. Take the medications as needed/directed. Please follow-up with an outpatient primary care doctor in the next 3 to 5 days for repeat checkup and evaluation. Please return to the emergency room right away with new pain, worsened pain, migration of pain, projectile vomiting, change in mental status, confusion, inability to tolerate liquid feeds, new, worsened or different symptoms not present on the initial emergency room evaluation Prescriptions: Nitrofurantoin [place]/M-Cryst [Macrobid CAP] 100 mg PO Q12HR #13 capsule Ibuprofen [Motrin] 600 mg PO Q8H PRN #30 tablet PRN Reason: Pain Acetaminophen [Non-Aspirin Extra Strength] 500 mg PO Q6HR PRN #30 tablet PRN Reason: Pain , Severe (7-10) Metoclopramide [Reglan] 10 mg PO QID PRN #30 tablet PRN Reason: Nausea Referrals: [facility] [Outside] - 3-5 Days [facility] [Provider Group] - 3-5 Days
[2021-04-19 23:46] LABS: Hematocrit 40.7 % (30.3-42.9); Hemoglobin 13.6 gm/dl (10.1-14.3); Mean Corpuscular HGB Conc 33 % (30-34); Mean Corpuscular Volume 83 fl (79-97); Platelet Count 211 K/mm3 (140-440); Red Blood Count 4.93 M/mm3 (3.65-5.03); Red Cell Distribution Width 13.9 % (13.2-15.2)
[2021-04-19 23:51] LABS: Blood Urea Nitrogen 10 mg/dL (7-17); Calcium 8.8 mg/dL (8.4-10.2); Hemolysis Index 2
[2021-04-19 23:57] LABS: BUN/Creatinine Ratio 17; INR 0.91 (0.87-1.13)
[2021-04-20 00:18] LABS: Bacteria,Urine 4+ /HPF (Negative); Bilirubin,Urine NEG (Negative); Blood,Urine LG (Negative); Color,Urine Yellow (Yellow); Mucus,Urine 3+ /HPF; Urobilinogen,Urine < 2.0 mg/dL (<2.0)
[2021-04-20] MEDS ORDERED: NITROFURANTOIN MONOHYD/M-CRYST 100 MG CAP PO ONE (00:36)
[2021-04-20] MEDS ORDERED: IBUPROFEN 400 MG TAB PO ONE (01:30)
== END 2021-04-20 02:35 | disposition home or self-care (01) ==
LOC: ED 19:15
DX: G43.909 Migraine, unspecified, not intractable, without status migrainosus (principal); R35.0 Frequency of micturition; K21.9 Gastro-esophageal reflux disease without esophagitis; J45.909 Unspecified asthma, uncomplicated; Z90.49 Acquired absence of other specified parts of digestive tract; Z98.890 Other specified postprocedural states; Z88.0 Allergy status to penicillin
CPT/HCPCS: 36415; 80048; 81001; 82550; 83735; 84702; 85027; 85610; 87086; 96361; 96374; 96375; 99284; J1200; J2765; J7120; 87076; 87186

== ENCOUNTER 2021-07-04 22:58 | Emergency (ER) | payer MEDICAID ==
--- NOTE | 2021-07-05 01:38 | Emergency Department Report ---
Upper Extremity - HPI Chief Complaint: Extremity Injury, Upper Stated Complaint: LEFT ARM PAIN/THINK ITS BROKEN Time Seen by Provider: 07/05/21 01:36 Upper Extremity: Left Hand, Left Little Finger Occurred When: Today Mechanism: Fall ( chasing a dog and fell on floor causing left 5th digit to hyperextend and crush injury to lateral hand) Severity: mild, moderate Symptoms: Yes Pain with Movement, Yes Swelling, Yes Bruising/Ecchymosis Other History: Left Handed ED Review of Systems ROS: Stated complaint: LEFT ARM PAIN/THINK ITS BROKEN Other details as noted in HPI Comment: All other systems reviewed and negative ED Past Medical Hx - Past Medical History Hx Hypertension: Yes (gestational) Hx Heart Attack/AMI: No Hx Congestive Heart Failure: No Hx Diabetes: Yes (gestational) Hx Deep Vein Thrombosis: No Hx GERD: Yes Hx Liver Disease: No Hx Renal Disease: No (kidney stones 2012) Hx Sickle Cell Disease: No Hx Headaches / Migraines: Yes (MIGRAINES) Hx Seizures: No Hx Asthma: Yes (last attack 1 year ago) Hx COPD: No Hx HIV: No Additional medical history: Gallbladder removed via LAP 06/16/16. gestional diabetes with pregnacies. - Surgical History Hx Cholecystectomy: Yes (06/2016) Additional Surgical History: Stent to kidney during , subsequently removed. D&C 2011 - Social History Smoking Status: Unknown if ever smoked Substance Use Type: None - Medications Home Medications: Home Medications Medication Instructions Recorded Confirmed Last Taken Type Albuterol Sulfate [Ventolin HFA] 2 puff IH Q4H PRN #1 hfa.aer.ad 03/06/18 10/11/19 6 Months Ago Rx ~04/11/19 Acetaminophen [Non-Aspirin Extra 500 mg PO Q6HR PRN #30 tablet 04/20/21 Unknown Rx Strength] Ibuprofen [Motrin] 600 mg PO Q8H PRN #30 tablet 04/20/21 Unknown Rx Metoclopramide [Reglan] 10 mg PO QID PRN #30 tablet 04/20/21 Unknown Rx Nitrofurantoin [place]/M-Cryst 100 mg PO Q12HR #13 capsule 04/20/21 Unknown Rx [Macrobid CAP] Upper Extremity Exam - Exam General: Vital signs noted. No distress. Alert and acting appropriately. Head and Torso: No HEENT Abnormality, No Neck Tenderness, No Chest/Lungs Abnormality, No Abdominal Tenderness, No Back Tenderness Shoulder Exam: Yes Normal Range of Motion in Shoulder, No Shoulder Tenderness, No Clavicle Tenderness, No Shoulder Deformity, No AC Joint Tenderness Arm Exam: No Arm/Humerus Tenderness, No Arm Deformity Elbow: No Elbow Tenderness, No Normal Range of Motion in Elbow, No Elbow Deformity Forearm: No Forearm Tenderness, No Forearm Deformity, No Pain with Pronation, No Pain with Supination Wrist: Yes Normal ROM in Wrist, No Wrist Tenderness, No Wrist Deformity, No Snuffbox Tenderness, No Pain with Axial Thumb Compression Hand: Yes Hand Tenderness (swelling and bruising to lateral left hand region. ), No Hand Deformity, No Digit Tenderness, No Normal ROM in Digit(s) (decrease rom to 5th digit due to pain), No Digit(s) Deformity, No Tendon Dysfunction CMS Exam: No Broken Skin, No Normal Distal Pulses, No Normal Capillary Refill, No Normal Distal Sensation ED Course Vital Signs 07/04/21 23:44 Temperature 98 F Pulse Rate 95 H Respiratory 16 Rate Blood Pressure 162/95 [Right] O2 Sat by Pulse 100 Oximetry - Orthopedic Splinting/Casting Injury #1 Side: left Upper Extremity Injury Location: hand Upper Extremity Immobilizer: ulnar gutter Additional Comments: neuro vascular in tact ED Medical Decision Making - Radiology Data Radiology results: report reviewed [facility] [address] [place] [address] XRay Report Signed Patient: CLARITA REBOLLEDO MR#: [id number] : 1990 Acct:[id number] Age/Sex: 31 / F ADM Date: 07/04/21 Loc: ED Attending Dr: Ordering Physician: KEVIN GLASGOW MD Date of Service: 07/05/21 Procedure(s): XR hand 3+V LT Accession Number(s): [id number] cc: ED MD MYAH Fluoro Time In Minutes: LEFT HAND 3 VIEW(S) INDICATION / CLINICAL INFORMATION: fall COMPARISON: None available. FINDINGS: BONES / JOINT(S): Acute minimally displaced fracture involves the base of the small finger metacarpal. No obvious intra-articular extension No significant arthritis. SOFT TISSUES: No significant abnormality. ADDITIONAL FINDINGS: None. IMPRESSION: 1. Acute minimally displaced fracture involving the base of the small finger metacarpal. Signer Name: Haily Price II, MD Signed: 07/05/2021 1:58 AM Workstation Name: [id number] Transcribed By: MARKOS Dictated By: HAILY PRICE II, MD Electronically Authenticated By: HAILY PRICE II, MD Signed Date/Time: 07/05/21157 DD/ 7 TD/TT: Print Cancel Critical care attestation.: If time is entered above; I have spent that time in minutes in the direct care of this critically ill patient, excluding procedure time. ED Disposition Clinical Impression: Fracture of metacarpal of left hand, closed Disposition: HOME / SELF CARE / HOMELESS Is pt being admited?: No Does the pt Need Aspirin: No Condition: Stable Instructions: Metacarpal Fracture Referrals: ANN HIGHTOWER MD [Primary Care Provider] - 3-5 Days [facility] [Provider Group] - 3-5 Days
[2021-07-05] MEDS ORDERED: oxyCODONE /ACETAMINOPHEN 5-325MG TAB PO ONE (01:39)
--- NOTE | 2021-07-05 02:03 | XRay Report ---
LEFT HAND 3 VIEW(S) INDICATION / CLINICAL INFORMATION: fall COMPARISON: None available. FINDINGS: BONES / JOINT(S): Acute minimally displaced fracture involves the base of the small finger metacarpal . No obvious intra-articular extension No significant arthritis. SOFT TISSUES: No significant abnormality. ADDITIONAL FINDINGS: None. IMPRESSION: 1. Acute minimally displaced fracture involving the base of the small finger metacarpal. Signer Name: Ronni Ramires II, MD Signed: 07/05/2021 1:58 AM Workstation Name: [id number]
[2021-07-05 04:12] VITALS: BP 154/94
== END 2021-07-05 04:14 | disposition home or self-care (01) ==
LOC: ED 22:58
DX: S62.309A Unspecified fracture of unspecified metacarpal bone, initial encounter for closed fracture (principal); I10 Essential (primary) hypertension; E11.9 Type 2 diabetes mellitus without complications; K21.9 Gastro-esophageal reflux disease without esophagitis; G43.909 Migraine, unspecified, not intractable, without status migrainosus; J45.909 Unspecified asthma, uncomplicated; Z90.49 Acquired absence of other specified parts of digestive tract; W19.XXXA Unspecified fall, initial encounter; Y93.89 Activity, other specified; Y92.89 Other specified places as the place of occurrence of the external cause; Y99.8 Other external cause status
CPT/HCPCS: 99283